=== PATIENT | female | born 1950 | race Caucasian/White ===

== ENCOUNTER 2016-10-13 12:06 | Emergency (ER) | payer OTHER ==
[2016-10-13] MEDS ORDERED: ONDANSETRON 4 MG/2 ML VIAL IVP STA (12:39)
[2016-10-13] MEDS ORDERED: KETOROLAC 60 MG/2 ML VIAL IVP STA (12:39)
[2016-10-13] MEDS ORDERED: SODIUM CHLORIDE 0.9% 1,000 ML IV ONE (12:39)
[2016-10-13] MEDS ORDERED: KETOROLAC 30 MG/ML VIAL ONE (12:47)
[2016-10-13] MEDS ORDERED: ONDANSETRON 4 MG/2 ML VIAL ONE (12:47)
[2016-10-13] MEDS ORDERED: ACETAMINOPHEN 325 MG TABLET PO STA (13:50)
[2016-10-13] MEDS ORDERED: ACETAMINOPHEN 325 MG TABLET PO ONE (13:50)
== END 2016-10-13 14:21 | disposition home or self-care (01) ==
DX: B34.9 Viral infection, unspecified (principal); R50.81 Fever presenting with conditions classified elsewhere; R03.0 Elevated blood-pressure reading, without diagnosis of hypertension; R35.0 Frequency of micturition; E03.9 Hypothyroidism, unspecified

== ENCOUNTER 2016-10-13 23:49 | Emergency (ER) | payer OTHER ==
[2016-10-14] MEDS ORDERED: cefTRIAXone 1 GM VIAL IM STA (01:45)
[2016-10-14] MEDS ORDERED: LIDOCAINE-MPF 1% 5 ML VIAL ONE (01:47)
[2016-10-14] MEDS ORDERED: cefTRIAXone 1 GM VIAL ONE (01:47)
== END 2016-10-14 01:53 | disposition home or self-care (01) ==
DX: L03.115 Cellulitis of right lower limb (principal); B34.9 Viral infection, unspecified; R50.81 Fever presenting with conditions classified elsewhere; R03.0 Elevated blood-pressure reading, without diagnosis of hypertension; R35.0 Frequency of micturition; E03.9 Hypothyroidism, unspecified
CPT/HCPCS: 36415; 51701; 80053; 81001; 83605; 83690; 85025; 87040; 87275; 87276; 96361; 96372; 96374; 96375; 99283; 99284; A9270

== ENCOUNTER 2019-02-16 12:25 | Emergency (ER) | payer MEDICARE, OTHER ==
--- NOTE | 2019-02-16 13:30 | XRAY Report ---
Reason: pain Procedure Date: 02/16/2019 Accession Number: [id number] / [id number] Procedure: XR - Knee 4 View RT CPT Code: FULL RESULT: EXAM: RIGHT KNEE RADIOGRAPHY EXAM DATE: 02/16/2019 12:53 PM. CLINICAL HISTORY: Pain. COMPARISON: None. TECHNIQUE: 4 views. FINDINGS: Bones: No acute fracture is identified. Joints: There is a small to moderate joint effusion. Osteophyte formation is greatest in the lateral compartment. Mild medial compartment joint space narrowing and osteophyte formation. Small osteophytes present in the patellofemoral compartment. No subluxation. Soft Tissues: No focal soft tissue swelling. IMPRESSION: Mild to moderate degenerative changes. Joint effusion. No acute fracture. RADIA
--- NOTE | 2019-02-16 13:54 | ED Physician Documentation ---
PD HPI LOWER EXT INJURY - Stated complaint Stated Complaint: RT KNEE INJURY - Chief complaint Chief Complaint: Trauma Ext - History obtained from History obtained from: Patient - History of Present Illness PD HPI LOW EXT INJURY LOCATION: Right (She is a history of a meniscus problem treated with arthroscopy on the right knee. That was remotely. More recently she has had pain in the lateral side of the Right knee and a lot of pressure in the knee with anterior swelling. The pain radiates up to the right hip laterally.) Review of Systems Constitutional: reports: Reviewed and negative Cardiac: reports: Reviewed and negative Respiratory: reports: Reviewed and negative PD PAST MEDICAL HISTORY - Past Medical History Cardiovascular: None Respiratory: Pneumonia Endocrine/Autoimmune: None GI: GERD : Incontinence, Kidney stones HEENT: None Psych: Depression Musculoskeletal: None Derm: None - Past Surgical History Past Surgical History: Yes Ortho: Arthroscopic surgery - Present Medications Home Medications: Ambulatory Orders Medication Instructions Recorded Confirmed Levothyroxine [Synthroid] 100 mcg PO DAILY 02/18/14 10/13/16 Escitalopram Oxalate [Lexapro] 20 mg PO DAILY 05/16/15 10/13/16 Omeprazole 1 tab PO DAILY 10/13/16 10/13/16 Amox/Clav 875/125 [Augmentin] 1 each PO Q12H #14 tablet 10/14/16 Hydrocodone/Acetaminophen 1 - 2 each PO Q6H PRN #14 tablet 02/16/19 [Hydrocodon-Acetaminophen 5-325] - Allergies Allergies/Adverse Reactions: Allergies Allergy/AdvReac Type Severity Reaction Status Date / Time No Known Drug Allergies Allergy Verified 02/16/19 12:32 - Social History Does the pt smoke?: No Smoking Status: Never smoker Does the pt drink ETOH?: Yes Does the pt have substance abuse?: No - POLST Patient has POLST: No PD ED PE NORMAL - Vitals Vital signs reviewed: Yes - General General: Alert and oriented X 3, No acute distress - Extremities Extremities: Other (The right knee is mildly tender anteriorly and over the lateral joint line. She is also tender and tight over the IT band. She does have positive grind testing but ligamentous testing is all tight and intact.) - Neuro Neuro: Alert and oriented X 3, Normal speech Results - Vitals Vitals: Vital Signs - 24 hr 02/16/19 12:31 Temperature 36.9 C Heart Rate 88 Respiratory 18 Rate Blood Pressure 148/83 H O2 Saturation 97 Oxygen O2 Source Room air - Rads (name of study) R knee 4v Radiology: EMP read contemporaneously (Mild to moderate degenerative changes and joint effusion without acute fracture) Departure - Departure Disposition: 01 Home, Self Care Clinical Impression: Internal derangement of right knee, Iliotibial band syndrome of right side Condition: Good Record reviewed to determine appropriate education?: Yes Instructions: ED Meniscal Injury Knee Poss, Iliotibial Band Stretch Prescriptions: Hydrocodone/Acetaminophen [Hydrocodon-Acetaminophen 5-325] 1 - 2 each PO Q6H PRN #14 tablet PRN Reason: pain Comments: As discussed it seems like your knee problem is a combination of a few things, some degenerative/arthritic changes, iliotibial band syndrome, and potentially something like a meniscus issue. Do the stretches as shown. You can wear the articulating knee splint as needed. Take the x-ray and follow-up with your primary care physician for a referral to your orthopedic provider. Return for new or worsening symptoms.
[2019-02-16 14:05] VITALS: BP 152/71
== END 2019-02-16 14:06 | disposition home or self-care (01) ==
LOC: ED 12:25
DX: M23.91 Unspecified internal derangement of right knee (principal); M76.31 Iliotibial band syndrome, right leg
CPT/HCPCS: 99283

== ENCOUNTER 2019-12-13 07:50 | Outpatient (CLI) | payer MEDICARE ==
[2019-12-13 10:39] LABS: ALBUMIN 3.9 g/dL (3.2-5.5); ALBUMIN/GLOBULIN RATIO 1.1 (1.0-2.2); BILIRUBIN,TOTAL 0.8 mg/dL (0.2-1.0); CALCIUM 9.3 mg/dL (8.5-10.3); CREATININE 0.7 mg/dL (0.4-1.0); TOTAL PROTEIN 7.3 g/dL (6.7-8.2)
[2019-12-13 11:47] LABS: HB2 TOTAL 15.2 g/dL; HEMOGLOBIN A1C 0.59 g/dL; HEMOGLOBIN A1C % 5.7 % (4.6-6.2)
== END 2019-12-13 07:51 | disposition home or self-care (01) ==
LOC: LAB.S 07:50
PROVIDERS: ATTEND Nurse Practitioner Family
DX: R73.01 Impaired fasting glucose (principal)
CPT/HCPCS: 36415; 80053; 83036

== ENCOUNTER 2020-03-10 09:17 | Outpatient (CLI) | payer MEDICARE ==
--- NOTE | 2020-03-13 12:26 | Mammography Report ---
BILATERAL DIGITAL SCREENING MAMMOGRAM 3D/2D: 03/10/2020 CLINICAL: Routine screening. Comparison is made to exams dated: 12/29/2013 mammogram and 07/09/2012 mammogram - [facility]. The tissue of both breasts is predominantly fatty. No significant masses, calcifications, or other findings are seen in either breast. There has been no significant interval change. IMPRESSION: NEGATIVE There is no mammographic evidence of malignancy. A 1 year screening mammogram is recommended. This exam was interpreted at Station ID: [id number]. NOTE: For mammograms, a report in lay terms will be sent to the patient. Approximately 15% of breast malignancies will not be visualized mammographically. In the management of a palpable breast mass, a negative mammogram must not discourage biopsy of a clinically suspicious lesion. Electronically Signed By: Vivi gaspar/[email or web address]:03/10/2020 18:11:40 ACR BI-RADS Category 1: Negative 3341F PARENCHYMAL PATTERN: (F) - The breast(s) demonstrate(s) diffuse fatty replacement. BI-RADS CATEGORY: (1) - 1 RECOMMENDATION: (ANNUAL) - Recommend routine annual screening mammography. [id number] 1 year screening LATERALITY: (B)
== END 2020-03-10 09:18 | disposition home or self-care (01) ==
LOC: DI 09:17
PROVIDERS: ATTEND Physician Assistant Medical
DX: Z12.31 Encounter for screening mammogram for malignant neoplasm of breast (principal)
CPT/HCPCS: 77063; 77067

== ENCOUNTER 2021-02-08 07:25 | Outpatient (CLI) | payer MEDICARE ==
[2021-02-08 14:34] LABS: BASOPHILS # (AUTO) 0.1 10^3/uL (0.0-0.1); BASOPHILS % (AUTO) 1.1 %; EOSINOPHILS # (AUTO) 0.1 10^3/uL (0.0-0.7); EOSINOPHILS % (AUTO) 2.3 %; HCT - HEMATOCRIT 43.5 % (37.0-47.0); LYMPHOCYTES # (AUTO) 1.5 10^3/uL (1.5-3.5); LYMPHOCYTES % (AUTO) 32.8 %; MEAN CORPUSCULAR HEMOGLOBIN 32.9 pg (27.0-31.0); MEAN CORPUSCULAR HGB CONC 32.2 g/dL (32.0-36.0); MEAN CORPUSCULAR VOLUME 102.4 fL (81.0-99.0); MEAN PLATELET VOLUME 12.8 fL (7.9-10.8); MONOCYTES # (AUTO) 0.5 10^3/uL (0.0-1.0); MONOCYTES % (AUTO) 9.6 %; NEUTROPHILS # (AUTO) 2.5 10^3/uL (1.5-6.6); PLT - PLATELET COUNT 203 10^3/uL (130-450); RED BLOOD COUNT 4.25 10^6/uL (4.20-5.40); RED CELL DISTRIBUTION WIDTH 12.8 % (12.0-15.0); WHITE BLOOD COUNT 4.7 x10^3/uL (4.8-10.8)
[2021-02-08 15:46] LABS: CHOL/HDL RATIO 3.4 (<4.4); CHOLESTEROL 189 mg/dL; HDL CHOLESTEROL 56 mg/dL; LDL CHOLESTEROL,CALCULATED 100 mg/dL; LDL/HDL RATIO 1.8 (<4.4); TRIGLYCERIDES 165 mg/dL; VLDL CHOLESTEROL 33 mg/dL
[2021-02-08 15:48] LABS: THYROID STIMULATING HORMONE 1.31 uIU/mL (0.34-5.60)
[2021-02-08 16:09] LABS: ESTIMATED AVERAGE GLUCOSE 105 mg/dL (70-100); HEMOGLOBIN A1c% 5.3 % (4.27-6.07)
== END 2021-02-08 07:26 | disposition home or self-care (01) ==
LOC: LAB.S 07:25
PROVIDERS: ATTEND Internal Medicine
DX: K21.9 Gastro-esophageal reflux disease without esophagitis (principal); Z13.6 Encounter for screening for cardiovascular disorders; E03.9 Hypothyroidism, unspecified; R73.01 Impaired fasting glucose
CPT/HCPCS: 36415; 80061; 83036; 83721; 84443; 85025

== ENCOUNTER 2021-03-12 15:23 | Outpatient (CLI) | payer MEDICARE ==
[2021-03-12 19:52] LABS: BASOPHILS % (AUTO) 0.7 %; EOSINOPHILS # (AUTO) 0.1 10^3/uL (0.0-0.7); EOSINOPHILS % (AUTO) 1.5 %; HCT - HEMATOCRIT 43.3 % (37.0-47.0); HGB - HEMOGLOBIN 13.8 g/dL (12.0-16.0); LYMPHOCYTES # (AUTO) 1.6 10^3/uL (1.5-3.5); LYMPHOCYTES % (AUTO) 26.6 %; MEAN CORPUSCULAR HEMOGLOBIN 32.9 pg (27.0-31.0); MEAN CORPUSCULAR HGB CONC 31.9 g/dL (32.0-36.0); MEAN CORPUSCULAR VOLUME 103.3 fL (81.0-99.0); MEAN PLATELET VOLUME 12.6 fL (7.9-10.8); MONOCYTES # (AUTO) 0.6 10^3/uL (0.0-1.0); MONOCYTES % (AUTO) 10.3 %; NEUTROPHILS # (AUTO) 3.6 10^3/uL (1.5-6.6); NEUTROPHILS % (AUTO) 60.7 %; PLT - PLATELET COUNT 199 10^3/uL (130-450); RED BLOOD COUNT 4.19 10^6/uL (4.20-5.40); RED CELL DISTRIBUTION WIDTH 13.3 % (12.0-15.0); WHITE BLOOD COUNT 5.9 x10^3/uL (4.8-10.8)
[2021-03-12 20:02] LABS: CALCIUM 9.3 mg/dL (8.5-10.3); CREATININE 0.7 mg/dL (0.4-1.0); POTASSIUM 3.9 mmol/L (3.5-5.0)
[2021-03-12 20:48] LABS: BILIRUBIN,URINE NEGATIVE (NEGATIVE); GLUCOSE, URINE (UA) NEGATIVE (NEGATIVE); KETONES,URINE (UA) NEGATIVE (NEGATIVE); LEUKOCYTE ESTERASE, URINE NEGATIVE (NEGATIVE); NITRITE,URINE NEGATIVE (NEGATIVE); OCCULT BLOOD,URINE NEGATIVE (NEGATIVE); PH,URINE 5.5 PH (5.0-7.5); PROTEIN,URINE NEGATIVE (NEGATIVE); UROBILINOGEN,URINE 0.2 (NORMAL) E.U./dL (NORMAL)
[2021-03-12 20:49] LABS: CLARITY,URINE CLEAR (CLEAR)
[2021-03-12 20:57] LABS: BACTERIA,URINE None Seen /HPF (None Seen); CRYSTALS,URINE 26-50 Ca Oxalate /LPF; RBC,URINE None Seen /HPF (0-5); SQUAMOUS EPITHELIAL CELL,UR RARE Squamous (<= Few); WBC,URINE 0-3 /HPF (0-5)
== END 2021-03-12 15:24 | disposition home or self-care (01) ==
LOC: LAB.S 15:23
PROVIDERS: ATTEND Internal Medicine
DX: N12 Tubulo-interstitial nephritis, not specified as acute or chronic (principal)
CPT/HCPCS: 36415; 80048; 81001; 85025; 87086

== ENCOUNTER 2021-04-24 08:00 | Outpatient (CLI) | payer MEDICARE | END 2021-04-24 23:59 | disposition home or self-care (01) | LOC: LAB.S 08:00 | PROVIDERS: ATTEND Physician Assistant Medical | DX: R39.15 Urgency of urination (principal); R35.0 Frequency of micturition | CPT/HCPCS: 87086 ==

== ENCOUNTER 2021-05-29 12:56 | Outpatient (CLI) | payer MEDICARE ==
--- NOTE | 2021-05-30 12:55 | Mammography Report ---
BILATERAL DIGITAL SCREENING MAMMOGRAM 3D/2D: 05/29/2021 CLINICAL: Routine screening. Routine screening. Comparison is made to exams dated: 03/10/2020 mammogram and 12/29/2013 mammogram - [facility]. The tissue of both breasts is predominantly fatty. No significant masses, calcifications, or other findings are seen in either breast. There has been no significant interval change. IMPRESSION: NEGATIVE There is no mammographic evidence of malignancy. A 1 year screening mammogram is recommended. This exam was interpreted at Station ID: [id number]. NOTE: For mammograms, a report in lay terms will be sent to the patient. Approximately 15% of breast malignancies will not be visualized mammographically. In the management of a palpable breast mass, a negative mammogram must not discourage biopsy of a clinically suspicious lesion. Electronically Signed By: Les Escobar M.D. ar/penrad:05/29/2021 14:01:19 ACR BI-RADS Category 1: Negative 3341F PARENCHYMAL PATTERN: (F) - The breast(s) demonstrate(s) diffuse fatty replacement. BI-RADS CATEGORY: (1) - 1 RECOMMENDATION: (ANNUAL) - Recommend routine annual screening mammography. [id number] 1 year screening LATERALITY: (B)
== END 2021-05-29 12:57 | disposition home or self-care (01) ==
LOC: DI.S 12:56
PROVIDERS: ATTEND Internal Medicine
DX: Z12.31 Encounter for screening mammogram for malignant neoplasm of breast (principal)

== ENCOUNTER 2021-10-03 15:29 | Outpatient (CLI) | payer MEDICARE ==
[2021-10-03 20:23] LABS: BILIRUBIN,URINE NEGATIVE (NEGATIVE); GLUCOSE, URINE (UA) NEGATIVE (NEGATIVE); KETONES,URINE (UA) NEGATIVE (NEGATIVE); LEUKOCYTE ESTERASE, URINE TRACE (NEGATIVE); NITRITE,URINE POSITIVE (NEGATIVE); OCCULT BLOOD,URINE NEGATIVE (NEGATIVE); PROTEIN,URINE NEGATIVE (NEGATIVE); UROBILINOGEN,URINE 0.2 (NORMAL) E.U./dL (NORMAL)
[2021-10-03 20:53] LABS: BACTERIA,URINE Many /HPF (None Seen); CLARITY,URINE SL. CLOUDY (CLEAR); CRYSTALS,URINE 6-10 Calcium Oxalate /LPF; RBC,URINE 0-5 /HPF (0-5); SQUAMOUS EPITHELIAL CELL,UR RARE Squamous (<= Few)
== END 2021-10-03 15:30 | disposition home or self-care (01) ==
LOC: LAB.S 15:29
PROVIDERS: ATTEND Internal Medicine
DX: R30.0 Dysuria (principal)
CPT/HCPCS: 81001; 87086; 87181

== ENCOUNTER 2021-10-23 09:56 | Outpatient (CLI) | payer MEDICARE ==
[2021-10-23 15:29] LABS: ESTIMATED AVERAGE GLUCOSE 123 mg/dL (70-100); HEMOGLOBIN A1c% 5.9 % (4.27-6.07)
[2021-10-23 15:40] LABS: CALCIUM 9.5 mg/dL (8.5-10.3); CREATININE 0.8 mg/dL (0.4-1.0); POTASSIUM 3.5 mmol/L (3.5-5.0)
[2021-10-23 16:26] LABS: THYROID STIMULATING HORMONE 1.72 uIU/mL (0.34-5.60)
== END 2021-10-23 09:57 | disposition home or self-care (01) ==
LOC: LAB.S 09:56
PROVIDERS: ATTEND Internal Medicine
DX: I10 Essential (primary) hypertension (principal); E03.9 Hypothyroidism, unspecified; R73.01 Impaired fasting glucose
CPT/HCPCS: 36415; 80048; 83036; 84443

== ENCOUNTER 2021-12-14 12:27 | Emergency (ER) | payer MEDICARE ==
--- NOTE | 2021-12-14 13:10 | ED Physician Documentation ---
PD HPI MAJOR TRAUMA - Stated complaint Stated Complaint: R HIP PX - Chief complaint Chief Complaint: Trauma Ch/Bk - History obtained from History obtained from: Patient - Additional information Additional information: She was working out in the heart the yard, her was using a riding lawnmower and it kind of blocked and then hit her. She fell face forward and hit her head on the ground. She denies headache or loss of consciousness. She not anticoagulated. Her only pain complaint is severe low back pain radiating into the right hip. This happened prior to arrival. Review of Systems Constitutional: reports: Reviewed and negative Eyes: reports: Reviewed and negative Ears: reports: Reviewed and negative Cardiac: reports: Reviewed and negative Respiratory: reports: Reviewed and negative PD PAST MEDICAL HISTORY - Past Medical History Cardiovascular: None Respiratory: Pneumonia Endocrine/Autoimmune: None GI: GERD : Incontinence, Kidney stones HEENT: None Psych: Depression Musculoskeletal: None Derm: None - Past Surgical History Past Surgical History: Yes Ortho: Arthroscopic surgery - Present Medications Home Medications: Ambulatory Orders Medication Instructions Recorded Confirmed Levothyroxine [Synthroid] 100 mcg PO DAILY 02/18/14 10/13/16 Escitalopram Oxalate [Lexapro] 20 mg PO DAILY 05/16/15 10/13/16 Omeprazole 1 tab PO DAILY 10/13/16 10/13/16 Amox/Clav 875/125 [Augmentin] 1 each PO Q12H #14 tablet 10/14/16 Hydrocodone/Acetaminophen 1 - 2 each PO Q6H PRN #14 tablet 02/16/19 [Hydrocodon-Acetaminophen 5-325] Oxycodone HCl/Acetaminophen 1 - 2 each PO Q6H PRN #30 tablet 12/14/21 [Percocet 5-325 mg Tablet] - Allergies Allergies/Adverse Reactions: Allergies Allergy/AdvReac Type Severity Reaction Status Date / Time No Known Drug Allergies Allergy Verified 12/14/21 12:45 - Social History Does the pt smoke?: No Smoking Status: Never smoker Does the pt drink ETOH?: Yes Does the pt have substance abuse?: No - POLST Patient has POLST: No PD ED PE NORMAL - Vitals Vital signs reviewed: Yes - General General: Alert and oriented X 3, Other (She appears uncomfortable and is laying kind of up on her left hip) - HEENT HEENT: PERRL, EOMI - Neck Neck: Supple, no meningeal sign, No bony TTP - Cardiac Cardiac: RRR, No murmur - Respiratory Respiratory: No respiratory distress, Clear bilaterally - Abdomen Abdomen: Normal bowel sounds, Soft, Non tender - Back Back: No CVA TTP, No spinal TTP - Derm Derm: Normal color - Extremities Extremities: Other (Severe tenderness of the lower lumbar spine and posterior right pelvic brim. The hip itself is nontender and she has painless range of motion of the hip with internal and external rotation.) - Neuro Neuro: Alert and oriented X 3, Normal speech Eye Opening: Spontaneous Motor: Obeys Commands Verbal: Oriented GCS Score: 15 Results - Vitals Vitals: Vital Signs - 24 hr 12/14/21 12/14/21 12:41 12:45 Temperature 36.0 C L 36.5 C Heart Rate 60 60 Respiratory 18 18 Rate Blood Pressure 138/68 H 138/68 H O2 Saturation 96 96 Oxygen O2 Source Room air - Rads (name of study) Lumbar spine CT showing acute L2 fracture without significant compression or retropulsion Radiology: EMP read contemporaneously PD MEDICAL DECISION MAKING - ED course ED course: 71-year-old woman presents after a ground-level fall. Found to have an L2 compression fracture. Other relevant CTs were negative. After administration 1 mg of Dilaudid IM (noting we could not get an IV on her and the first carpuject of Dilaudid that was drawn was broken in the Pyxis per the nurse) she was doing well and passed a road test with a walker. Departure - Departure Disposition: 01 Home, Self Care Clinical Impression: Compression fracture of L2 Qualifiers: Encounter type: initial encounter Qualified Code(s): S32.020A - Wedge compression fracture of second lumbar vertebra, initial encounter for closed fracture Condition: Good Record reviewed to determine appropriate education?: Yes Instructions: ED Fx Comp Vertebral Prescriptions: Oxycodone HCl/Acetaminophen [Percocet 5-325 mg Tablet] 1 - 2 each PO Q6H PRN #30 tablet PRN Reason: pain Comments: I sent your prescription electronically to [facility] in [place]. Follow-up with your doctor in about a week to see how its going. Return for new or worsening symptoms. I am prescribing a short course of narcotic pain medication for you. These are potentially dangerous and addictive medications that should be used carefully. These medications may constipate you. Take an yuib-cnq-xjdptke stool softener (docusate) twice daily with plenty of water while taking these medications. If you go 24 hours without a bowel movement, take xcnl-mer-ymyhngj miralax, per package instructions. Do not drink or drive while taking these medications. If you received narcotic or sedating medications while in the emergency department, do not drive for 24 hours. Store this medication in a safe, secure place and out of reach of children. It is a violation of federal law to give or sell this medication to another person or to use in a manner other than prescribed. The ED will not refill narcotic prescriptions, including prescriptions lost or stolen. To dispose of unwanted medications: 1. [facility] [address] in [place] has a medication drop box. They accept prescription medications (in pill form) Friday through Friday 9:00 a.m. to 5:00 p.m. 2. The [facility] [employer] accepts prescription medications (in pill form only) for disposal year round. Call for more information. 3. Contact the [facility] for the next [facility] sponsored prescription drug collection event. , [phone], or [phone]; Note that many narcotic pain relievers also contain Tylenol/acetaminophen. Please ensure that your total dose of acetaminophen from all sources does not exceed 3 g (3000 mg) per day.
--- OUTSIDE RECORDS SUMMARY | 2021-12-14 13:23 | EXTERNAL MEDICAL SUMMARY RPT | Continuity of Care Document ---
:1950 Author Organization [facility] Address [address] [place] [address] Phone Care Team Providers Name Role Phone Silas KWON Unavailable Unavailable Allergies No information. Encounters No information. Medications date description facility 20211015 oxybutynin chloride [facility] 20211015 lisinopril [facility] [id number] mirabegron [facility] Problems date description facility 20211015 Unspecified adverse effect of [facility] & unspecified drug, medicinal and Ancillar y Services [facility] biological substance 20211015 Undiagnosed cardiac murmurs Walk[facility]In [facility] Primary Care & Ancillary Services C [facility] 20211015 Total score? [facility] 20211015 Tobacco use and exposure [facility] 20211015 Tobacco smoking status NHIS [facility] & Ancillary Services [facility] 20211015 Systolic murmur [facility] 20211015 Never smoker [facility] 20211015 Details of drug misuse behavior [facility] 20211015 Contusion of other part of head, [facility] & initial encounter Ancillary Services [facility] 20211015 Contusion of forehead [facility] 20211015 Contusion of face, scalp, and neck [facility] & except eye(s) Ancillary Services [facility] 20211015 Cardiac murmur, unspecified Walk[facility]In [facility] Primary Care & Ancillary Services [facility] 20211015 Alcohol use [facility] 20211015 Adverse reaction to drug [facility] 20211015 Adverse effect of unspecified drugs, [facility] Primary Care & medicaments and biological substances, [facility] initial encounter Results No information. Vital Signs date measurement value source 20211015 weight_standard 250 lb 20211015 weight_metric 113.4 kg 20211015 temperature_standard 97.5 F 20211015 temperature_metric 36.39 C 20211015 respiration_rate 17 /min 20211015 height_standard 67 in 20211015 height_metric 170.18 cm 20211015 heart_rate 63 /min 20211015 BP_systolic 125 mm[Hg] 20211015 BP_diastolic 49 mm[Hg] 20211015 BMI 39.30 kg/m2
[2021-12-14] MEDS: HYDROmorphone 1 MG/ML CARPUJECT IM STA ×2 (13:38→13:40)
[2021-12-14] MEDS: ONDANSETRON ODT 4 MG TABLET TL STA (13:42)
[2021-12-14] MEDS: HYDROmorphone 1 MG/ML CARPUJECT IVP STA (13:44)
[2021-12-14] MEDS: ONDANSETRON 4 MG/2 ML VIAL IVP STA (13:44)
--- NOTE | 2021-12-14 14:27 | CT Report ---
PROCEDURE: LUMBAR SPINE WO INDICATIONS: Back injury TECHNIQUE: Noncontrast 3 mm thick sections acquired from the T12 level to the sacrum. Sagittal and coronal refo rmats were constructed. For radiation dose reduction, the following was used: automated exposure co ntrol, adjustment of mA and/or kV according to patient size. COMPARISON: None. FINDINGS: Image quality: Excellent. Bones: There is normal bony alignment. Acute/subacute appearing fractures noted in the anterior thi rd of the L2 vertebral body with approximately 10% compression deformity. No retropulsion. No suspici ous lytic or blastic bony lesions. Central spinal caliber is of normal overall caliber. No pars def ects. Multilevel disc bulges are present. Spinal stenosis is most prominent at L3-4, L4-5. Multilevel patricia inal narrowing is present most severe at L2-3, L3-4, L4-5 and L5-S1. Multilevel facet arthropathy is present. Soft tissues: No retroperitoneal masses or hematomas. Visualized aorta is normal in caliber. IMPRESSION: 1. Acute/subacute appearing fracture at the anterior third the L2 vertebral body without significant compression deformity. No retropulsion. 2. Multilevel degenerative changes are present. Reviewed by: Loreto Dyer MD on 12/14/2021 2:26 PM PDT Approved by: Loreto Dyer MD on 12/14/2021 2:26 PM PDT Station ID: [id number]
--- NOTE | 2021-12-14 14:36 | CT Report ---
PROCEDURE: PELVIS WO INDICATIONS: Back injury TECHNIQUE: Noncontrast 3 mm axial sections acquired through the bony pelvis, with coronal and sagittal reformatt ing. For radiation dose reduction, the following was used: automated exposure control, adjustment of mA and/or kV according to patient size. COMPARISON: None. FINDINGS: Image quality: Excellent. Bones: There is no visualized fractures or dislocations. Degenerative changes are present within the lower lumbar spine. No suspicious osseous lesions. Soft tissues: Visualized portions of the abdomen and pelvis demonstrate nodular to gas pattern. Blad ron is distended. No hernias. IMPRESSION: No visualized fracture. Reviewed by: Loreto Dyer MD on 12/14/2021 2:35 PM PDT Approved by: Loreto Dyer MD on 12/14/2021 2:35 PM PDT Station ID: [id number]
[2021-12-14 15:14] VITALS: BP 125/54
== END 2021-12-14 15:15 | disposition home or self-care (01) ==
LOC: ED 12:27
DX: S32.020A Wedge compression fracture of second lumbar vertebra, initial encounter for closed fracture (principal); W28.XXXA Contact with powered lawn mower, initial encounter
CPT/HCPCS: 72131; 72192; 96372; 99283; J1170; Q0162

== ENCOUNTER 2022-01-22 12:58 | Outpatient (CLI) | payer MEDICARE ==
--- NOTE | 2022-01-22 14:02 | XRAY Report ---
PROCEDURE: Lumbar Spine 2 View INDICATIONS: LOW BACK PX TECHNIQUE: 3 views of the lumbar spine were acquired. COMPARISON: CT lumbar spine, 12/14/1021. FINDINGS: Bones: 5 xsa-not-wvyobcr vertebrae are present. There is rate 1 anterolisthesis of L4 on L5. Modera qx-eb-zrlhll vertebral body compression fracture is present at L2, significantly increased in severit y since the last exam. No suspicious bony lesions. Mild degenerative disease throughout lumbar spin e. Moderate facet arthropathy at L4-L5 and L5-S1. 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 Soft tissues: Overlying bowel gas pattern is normal. Mild scattered calcifications indicating athero sclerosis. IMPRESSION: 1. Eadzznop-hv-nnpahg compression fracture of L2, significantly worsened since 12/14/2021. Reviewed by: Elmer Cage MD on 01/22/2022 2:01 PM PDT Approved by: Elmer Cage MD on 01/22/2022 2:01 PM PDT Station ID: [id number]
== END 2022-01-22 12:59 | disposition home or self-care (01) ==
LOC: DI.N 12:58
PROVIDERS: ATTEND Student in an Organized Health Care Education/Training Program
DX: M48.56XA Collapsed vertebra, not elsewhere classified, lumbar region, initial encounter for fracture (principal)

== ENCOUNTER 2022-04-12 08:00 | Outpatient (CLI) | payer MEDICARE ==
[2022-04-12 20:02] LABS: BILIRUBIN,URINE NEGATIVE (NEGATIVE); GLUCOSE, URINE (UA) NEGATIVE (NEGATIVE); KETONES,URINE (UA) NEGATIVE (NEGATIVE); LEUKOCYTE ESTERASE, URINE SMALL (NEGATIVE); NITRITE,URINE NEGATIVE (NEGATIVE); OCCULT BLOOD,URINE NEGATIVE (NEGATIVE); PROTEIN,URINE NEGATIVE (NEGATIVE); UROBILINOGEN,URINE 0.2 (NORMAL) E.U./dL (NORMAL)
[2022-04-12 20:05] LABS: CLARITY,URINE HAZY (CLEAR)
[2022-04-12 20:13] LABS: BACTERIA,URINE Many /HPF (None Seen); RBC,URINE 0-5 /HPF (0-5); SQUAMOUS EPITHELIAL CELL,UR RARE Squamous (<= Few); WBC,URINE >25 /HPF (0-5)
== END 2022-04-12 23:59 | disposition home or self-care (01) ==
LOC: LAB 08:00
PROVIDERS: ATTEND Physician Assistant Medical
DX: R30.0 Dysuria (principal)
CPT/HCPCS: 81001

== ENCOUNTER 2022-04-17 08:00 | Outpatient (CLI) | payer MEDICARE | END 2022-04-17 23:59 | disposition home or self-care (01) | LOC: LAB.S 08:00 | PROVIDERS: ATTEND Registered Nurse | DX: R30.0 Dysuria (principal) | CPT/HCPCS: 87086 ==

== ENCOUNTER 2022-06-29 11:50 | Emergency (ER) | payer MEDICARE ==
[2022-06-29 12:09] VITALS: BP 150/68
--- NOTE | 2022-06-29 12:19 | ED Physician Documentation ---
History of Present Illness - Stated complaint Stated Complaint: RT KNEE PX/FLUID - Chief complaint Chief Complaint: Ext Problem - History obtained from History obtained from: Patient - Additonal information Additional information: Patient is a 72-year-old female presenting for evaluation of bilateral lower extremity edema which is been a chronic problem for the patient. However recently she has had a wound to the right heel. It started off as a blister from poor fitting shoes.It was lanced on June 26 And she was started on cephalexin. She reports that initially looked like it was getting better but over the last few days that it has increased in size which she attributes to the swelling in her legs. She continues to have yellow drainage from the wound but denies purulent drainage.She reports that the swelling in both legs is making her knees hurt. She reports having ongoing issues with swelling in her legs from childhood. She did mention that she had talked to her primary care doctor about this in the past and the plan was to start her on hydrochlorothiazide as a diuretic however that has not been initiated and she has not been able to get back in with her primary care doctor since the wound started.She denies fever, chest pain, difficulty breathing, abdominal pain, unilateral leg pain,History of PE or DVT. She denies recent trauma or injury. Review of Systems Constitutional: denies: Fever Nose: denies: Congestion Throat: denies: Sore throat Cardiac: denies: Chest pain / pressure Respiratory: denies: Dyspnea GI: denies: Abdominal Pain : denies: Dysuria Musculoskeletal: reports: Joint pain, Extremity swelling PD PAST MEDICAL HISTORY - Past Medical History Cardiovascular: None Respiratory: Pneumonia Endocrine/Autoimmune: None GI: GERD : Incontinence, Kidney stones HEENT: None Psych: Depression Musculoskeletal: None Derm: None - Past Surgical History Past Surgical History: Yes Ortho: Arthroscopic surgery - Present Medications Home Medications: Ambulatory Orders Medication Instructions Recorded Confirmed Levothyroxine [Synthroid] 100 mcg PO DAILY 02/18/14 10/13/16 Escitalopram Oxalate [Lexapro] 20 mg PO DAILY 05/16/15 10/13/16 Omeprazole 1 tab PO DAILY 10/13/16 10/13/16 Amox/Clav 875/125 [Augmentin] 1 each PO Q12H #14 tablet 10/14/16 Hydrocodone/Acetaminophen 1 - 2 each PO Q6H PRN #14 tablet 02/16/19 [Hydrocodon-Acetaminophen 5-325] Oxycodone HCl/Acetaminophen 1 - 2 each PO Q6H PRN #30 tablet 12/14/21 [Percocet 5-325 mg Tablet] Furosemide [Lasix] 40 mg PO DAILY #3 tablet 06/29/22 Sulfamethox/Trimeth 800/160 1 each PO BID #14 tablet 06/29/22 [Bactrim Ds 800/160] - Allergies Allergies/Adverse Reactions: Allergies Allergy/AdvReac Type Severity Reaction Status Date / Time No Known Drug Allergies Allergy Verified 06/29/22 12:09 - Social History Does the pt smoke?: No Smoking Status: Never smoker Does the pt drink ETOH?: Yes Does the pt have substance abuse?: No - POLST Patient has POLST: No PD ED PE NORMAL - General General: Alert and oriented X 3, No acute distress, Well developed/nourished - HEENT HEENT: Atraumatic, Moist mucous membranes - Neck Neck: Supple, no meningeal sign - Cardiac Cardiac: RRR, Strong equal pulses - Respiratory Respiratory: No respiratory distress, Clear bilaterally - Derm Derm: Warm and dry - Extremities Extremities: No deformity, No tenderness to palpate, No calf tenderness / cord, Other (Quarter size open wound to right heel with serosanguineous drainage, no fluctuance, no surrounding erythema, no streaking or signs of lymphangitic spread). No: No edema (Symmetric bilateral lower extremity swelling, no calf tenderness) - Neuro Neuro: Normal speech Results - Vitals Vitals: Vital Signs - 24 hr 06/29/22 12:02 Temperature 36.4 C L Heart Rate 71 Respiratory 16 Rate Blood Pressure 150/68 H O2 Saturation 98 Oxygen O2 Source Room air - Labs Labs: Laboratory Tests 06/29/22 12:18 Sodium 138 Potassium 4.6 Chloride 101 Carbon Dioxide 31 Anion Gap 6.0 BUN 18 Creatinine 0.7 Estimated GFR (MDRD) 82 L Glucose 115 H Calcium 9.3 PD MEDICAL DECISION MAKING - ED course Complexity details: reviewed results, re-evaluated patient, d/w patient ED course: Patient with Right heel wound status post recent drainage with continued pain and erythema. No lymphangitic spread. No fluctuance to suggest continued abscess. Patient has bilateral lower extremity edema which is an acute on chronic problem for the patient. In no respiratory symptoms.Renal function and electrolytes within normal limits. Discussed plan to obtain wound culture and broaden antibiotic coverage. Patient also given a short course of Lasix to help with her lower extremity edema and will follow up with primary care doctor. No unilateral swelling or calf tenderness to suggest DVT. Pt advised on concerning symptoms to return for. Departure - Departure Disposition: 01 Home, Self Care Clinical Impression: Localized swelling of both lower legs Blister of right heel with infection Qualifiers: Encounter type: subsequent encounter Qualified Code(s): S90.821D - Blister (nonthermal), right foot, subsequent encounter Condition: Stable Instructions: ED Infec Skin Cellulitis, ED Edema Legs Bilateral Follow-Up: Duong Castañeda MD [Primary Care Provider] - Prescriptions: Sulfamethox/Trimeth 800/160 [Bactrim Ds 800/160] 1 each PO BID #14 tablet Furosemide [Lasix] 40 mg PO DAILY #3 tablet Comments: We have obtained a wound culture from your right heel and I have started you on an additional antibiotic called Bactrim which will cover for organisms not covered by cephalexin. I will also give you a short course of a diuretic called Lasix which may help with the edema in both legs. I have sent these prescriptions to [facility]. Please call your primary care doctor on Friday for close follow-up. If you notice any worsening symptoms please return to the emergency department. Discharge Date/Time: 06/29/22 12:48
[2022-06-29 12:33] LABS: CALCIUM 9.3 mg/dL (8.5-10.3); CREATININE 0.7 mg/dL (0.4-1.0); POTASSIUM 4.6 mmol/L (3.5-5.0)
== END 2022-06-29 12:48 | disposition home or self-care (01) ==
LOC: ED 11:50
DX: R60.0 Localized edema (principal); S90.821A Blister (nonthermal), right foot, initial encounter; X58.XXXA Exposure to other specified factors, initial encounter
CPT/HCPCS: 36415; 80048; 87070; 87205; 99283; 99284

== ENCOUNTER 2022-10-23 15:55 | Outpatient (CLI) | payer MEDICARE ==
--- NOTE | 2022-10-23 17:59 | XRAY Report ---
PROCEDURE: Chest 2 View X-Ray INDICATIONS: EXERTIONAL DYSPNEA TECHNIQUE: 2 views of the chest were acquired. COMPARISON: None. FINDINGS: Surgical changes and devices: None. Lungs and pleura: No pleural effusions or pneumothorax. Lungs are clear. Mediastinum: Mediastinal contours are normal. Heart size is normal. Bones and chest wall: No suspicious bony abnormalities. Soft tissues appear unremarkable. IMPRESSION: No acute cardiopulmonary findings. Reviewed by: Madalyn Aquino MD on 10/23/2022 5:58 PM [facility] Approved by: Madalyn Aquino MD on 10/23/2022 5:58 PM [facility] Station ID: [id number]
--- NOTE | 2022-10-23 18:00 | XRAY Report ---
PROCEDURE: Lumbar Spine 2 View INDICATIONS: LOWER BACK PAIN TECHNIQUE: 2 views of the lumbar spine were acquired. COMPARISON: 2 views of the lumbar spine dated 01/22/2022 FINDINGS: Bones: 5 [id number] vertebrae are present. Severe compression deformity is redemonstrated at L2 , unchanged from the prior study. No new compression deformities. Anterolisthesis at L4-5 is redemons trated, unchanged. Fused intervertebral disc space narrowing and endplate sclerosis is redemonstrated . Soft tissues: Overlying bowel gas pattern is normal. No suspicious soft tissue calcifications. IMPRESSION: Stable degenerative change and severe L2 compression deformity. Reviewed by: Madalyn Aquino MD on 10/23/2022 5:59 PM PST Approved by: Madalyn Aquino MD on 10/23/2022 5:59 PM PST Station ID: [id number]
== END 2022-10-23 15:56 | disposition home or self-care (01) ==
LOC: DI 15:55
PROVIDERS: ATTEND Student in an Organized Health Care Education/Training Program
DX: R06.00 Dyspnea, unspecified (principal); M47.816 Spondylosis without myelopathy or radiculopathy, lumbar region

== ENCOUNTER 2022-11-26 09:38 | Outpatient (CLI) | payer MEDICARE ==
[2022-11-26 15:08] LABS: BILIRUBIN,URINE NEGATIVE (NEGATIVE); GLUCOSE, URINE (UA) NEGATIVE (NEGATIVE); KETONES,URINE (UA) NEGATIVE (NEGATIVE); LEUKOCYTE ESTERASE, URINE MODERATE (NEGATIVE); NITRITE,URINE POSITIVE (NEGATIVE); OCCULT BLOOD,URINE NEGATIVE (NEGATIVE); PROTEIN,URINE NEGATIVE (NEGATIVE); UROBILINOGEN,URINE 0.2 (NORMAL) E.U./dL (NORMAL)
[2022-11-26 15:37] LABS: CLARITY,URINE HAZY (CLEAR); RBC,URINE 0-5 /HPF (0-5); SQUAMOUS EPITHELIAL CELL,UR RARE Squamous (<= Few); WBC CLUMPS,URINE PRESENT; WBC,URINE >25 /HPF (0-5)
[2022-11-26 15:38] LABS: BACTERIA,URINE Many /HPF (None Seen)
== END 2022-11-26 09:39 | disposition home or self-care (01) ==
LOC: LAB.S 09:38
PROVIDERS: ATTEND Internal Medicine
DX: N39.0 Urinary tract infection, site not specified (principal)
CPT/HCPCS: 81001; 81003; 87086; 87181

== ENCOUNTER 2022-11-29 08:00 | Outpatient (CLI) | payer MEDICARE ==
[2022-11-29 19:40] LABS: BASOPHILS # (AUTO) 0.1 10^3/uL (0.0-0.1); BASOPHILS % (AUTO) 1.1 %; EOSINOPHILS # (AUTO) 0.2 10^3/uL (0.0-0.7); EOSINOPHILS % (AUTO) 2.8 %; HCT - HEMATOCRIT 40.4 % (37.0-47.0); HGB - HEMOGLOBIN 13.2 g/dL (12.0-16.0); LYMPHOCYTES # (AUTO) 1.5 10^3/uL (1.5-3.5); LYMPHOCYTES % (AUTO) 27.3 %; MEAN CORPUSCULAR HGB CONC 32.7 g/dL (32.0-36.0); MEAN PLATELET VOLUME 11.9 fL (7.9-10.8); MONOCYTES # (AUTO) 0.8 10^3/uL (0.0-1.0); MONOCYTES % (AUTO) 15.4 %; NEUTROPHILS # (AUTO) 2.9 10^3/uL (1.5-6.6); NEUTROPHILS % (AUTO) 53.2 %; PLT - PLATELET COUNT 210 10^3/uL (130-450); RED CELL DISTRIBUTION WIDTH 12.8 % (12.0-15.0); WHITE BLOOD COUNT 5.4 x10^3/uL (4.8-10.8)
[2022-11-29 20:04] LABS: ALBUMIN 3.5 g/dL (3.2-5.5); ALKALINE PHOSPHATASE 60 IU/L (42-121); ALT ALANINE AMINOTRANSFERASE 20 IU/L (10-60); AST ASPARTATE AMINOTRANSFERASE 23 IU/L (10-42); BILIRUBIN,TOTAL 0.5 mg/dL (0.2-1.0); BUN - BLOOD UREA NITROGEN 18 mg/dL (6-20); CALCIUM 9.4 mg/dL (8.5-10.3); CARBON DIOXIDE - CO2 30 mmol/L (21-32); CHLORIDE 101 mmol/L (101-111); CHOLESTEROL 175 mg/dL; CREATININE 0.9 mg/dL (0.4-1.0); GFR - MDRD 62 (>89); GLUCOSE 101 mg/dL (70-100); HDL CHOLESTEROL 58 mg/dL; LDL CHOLESTEROL,CALCULATED 82 mg/dL; LDL/HDL RATIO 1.4 (<4.4); POTASSIUM 4.7 mmol/L (3.5-5.0); SODIUM 139 mmol/L (135-145); TRIGLYCERIDES 173 mg/dL; VLDL CHOLESTEROL 35 mg/dL
[2022-11-29 20:05] LABS: ESTIMATED AVERAGE GLUCOSE 120 mg/dL (70-100); HEMOGLOBIN A1c% 5.8 % (4.27-6.07)
[2022-11-29 20:16] LABS: THYROID STIMULATING HORMONE 2.91 uIU/mL (0.34-5.60)
== END 2022-11-29 23:59 | disposition home or self-care (01) ==
LOC: LAB.S 08:00
PROVIDERS: ATTEND Internal Medicine
DX: I10 Essential (primary) hypertension (principal); E03.9 Hypothyroidism, unspecified; R73.01 Impaired fasting glucose; N12 Tubulo-interstitial nephritis, not specified as acute or chronic; Z13.220 Encounter for screening for lipoid disorders
CPT/HCPCS: 36415; 80053; 80061; 83036; 83721; 84443; 85025

== ENCOUNTER 2022-12-09 13:10 | Outpatient (CLI) | payer MEDICARE ==
[2022-12-09 19:56] LABS: BILIRUBIN,URINE NEGATIVE (NEGATIVE); GLUCOSE, URINE (UA) NEGATIVE (NEGATIVE); KETONES,URINE (UA) NEGATIVE (NEGATIVE); LEUKOCYTE ESTERASE, URINE NEGATIVE (NEGATIVE); NITRITE,URINE NEGATIVE (NEGATIVE); OCCULT BLOOD,URINE NEGATIVE (NEGATIVE); PROTEIN,URINE NEGATIVE (NEGATIVE); UROBILINOGEN,URINE 0.2 (NORMAL) E.U./dL (NORMAL)
[2022-12-09 20:04] LABS: AMORPHOUS SEDIMENT,UR Marked /LPF; BACTERIA,URINE Rare /HPF (None Seen); CLARITY,URINE SL. CLOUDY (CLEAR); RBC,URINE 0-5 /HPF (0-5); SQUAMOUS EPITHELIAL CELL,UR FEW Squamous (<= Few); WBC,URINE 0-3 /HPF (0-5)
[2022-12-09 20:05] LABS: CRYSTALS,URINE 0-2 Calcium Oxalate /LPF
== END 2022-12-09 13:11 | disposition home or self-care (01) ==
LOC: LAB.S 13:10
PROVIDERS: ATTEND Internal Medicine
DX: N39.0 Urinary tract infection, site not specified (principal)
CPT/HCPCS: 81001; 87086

== ENCOUNTER 2022-12-11 10:49 | Outpatient (CLI) | payer MEDICARE ==
[2022-12-11] MEDS ORDERED: iohexoL-300 100 ML VIAL ONE (10:55)
--- NOTE | 2022-12-11 14:30 | CT Report ---
PROCEDURE: ABDOMEN/PELVIS W INDICATIONS: RECURRENT UTI CONTRAST: 100ml Omnipaque 300 TECHNIQUE: After the administration of IV and oral contrast, 5 mm thick sections acquired from the diaphragms to the symphysis. 5 mm thick coronal and sagittal reformats were acquired. For radiation dose reducti on, the following was used: automated exposure control, adjustment of mA and/or kV according to fernanda ent size. COMPARISON: None. FINDINGS: Image quality: Good Lower chest: Unremarkable. Possible tiny hiatal hernia. Heart size is normal. Solid organs: Possible hepatic steatosis. Gallbladder is unremarkable. No pathologic dilation of the biliary tree or pancreatic duct. No splenomegaly. No adrenal nodules. No hydronephrosis. No intrarena l calculi within the limits of contrast evaluation. There are pelvic phleboliths. No measurable renal mass. There might be a punctate right distal ureter stone (), without upstream hydronephrosis. N o calcified bladder stones identified. Vessels and lymph nodes: No pathologic adenopathy by size criteria. The main portal vein is patent. N o abdominal aortic aneurysm. Retroaortic left renal vein Bowel and peritoneum: No evidence of small bowel obstruction. No pathologic ascites or drainable absc ess. Body wall: Unremarkable Pelvis: No calcified bladder stones. Reproductive organs appear unremarkable limited CT evaluation. Bones: Scattered degenerative changes without suspicious osseous finding. Progressed height loss of t he L2 vertebral body, now with over 50% fracture, new compared to 2022 imaging. There is trace retrop ulsion. IMPRESSION: Punctate right distal ureter stone (), without upstream hydronephrosis. Increased height loss, now with over 50% fracture, and trace retropulsion, of the L2 vertebral body c ompared to 2021. Correlate for any personal history of malignancy to determine if follow-up is needed . Other incidental findings above. Reviewed by: Mario Phillips MD on 12/11/2022 2:29 PM PDT Approved by: Mario Phillips MD on 12/11/2022 2:29 PM PDT Station ID: [id number]
[2022-12-11] MEDS ORDERED: DIATRIZOATE MEGLU/DIATRIZO SOD 30 ML BOTTLE PO ONE (14:32)
[2022-12-11] MEDS ORDERED: iohexoL-300 100 ML VIAL IVP ONE (14:33)
== END 2022-12-11 10:50 | disposition home or self-care (01) ==
LOC: DI 10:49
PROVIDERS: ATTEND Internal Medicine
DX: N20.1 Calculus of ureter (principal); M48.56XS Collapsed vertebra, not elsewhere classified, lumbar region, sequela of fracture
CPT/HCPCS: 74177; Q9963; Q9967

== ENCOUNTER 2023-02-21 11:59 | Outpatient (CLI) | payer MEDICARE ==
[2023-02-21 15:11] LABS: BILIRUBIN,URINE NEGATIVE (NEGATIVE); CLARITY,URINE HAZY (CLEAR); GLUCOSE, URINE (UA) NEGATIVE (NEGATIVE); KETONES,URINE (UA) NEGATIVE (NEGATIVE); LEUKOCYTE ESTERASE, URINE SMALL (NEGATIVE); NITRITE,URINE POSITIVE (NEGATIVE); OCCULT BLOOD,URINE NEGATIVE (NEGATIVE); PH,URINE 5.5 PH (5.0-7.5); PROTEIN,URINE NEGATIVE (NEGATIVE); UROBILINOGEN,URINE 0.2 (NORMAL) E.U./dL (NORMAL)
[2023-02-21 15:52] LABS: BACTERIA,URINE Moderate /HPF (None Seen); RBC,URINE 0-5 /HPF (0-5); SQUAMOUS EPITHELIAL CELL,UR FEW Squamous (<= Few); WBC,URINE >25 /HPF (0-5)
== END 2023-02-21 12:00 | disposition home or self-care (01) ==
LOC: LAB.S 11:59
PROVIDERS: ATTEND Internal Medicine
DX: N39.0 Urinary tract infection, site not specified (principal)
CPT/HCPCS: 81001; 81003; 87086; 87181

== ENCOUNTER 2023-02-27 09:41 | Outpatient (CLI) | payer MEDICARE ==
[2023-02-27 14:50] LABS: BILIRUBIN,URINE NEGATIVE (NEGATIVE); GLUCOSE, URINE (UA) NEGATIVE (NEGATIVE); KETONES,URINE (UA) NEGATIVE (NEGATIVE); LEUKOCYTE ESTERASE, URINE NEGATIVE (NEGATIVE); NITRITE,URINE NEGATIVE (NEGATIVE); OCCULT BLOOD,URINE NEGATIVE (NEGATIVE); PROTEIN,URINE NEGATIVE (NEGATIVE); UROBILINOGEN,URINE 0.2 (NORMAL) E.U./dL (NORMAL)
[2023-02-27 15:03] LABS: CALCIUM 9.5 mg/dL (8.5-10.3); CREATININE 0.8 mg/dL (0.4-1.0); POTASSIUM 3.9 mmol/L (3.5-5.0)
[2023-02-27 15:06] LABS: CLARITY,URINE CLEAR (CLEAR); RBC,URINE 0-5 /HPF (0-5); WBC,URINE 0-3 /HPF (0-5)
[2023-02-27 15:07] LABS: BACTERIA,URINE Rare /HPF (None Seen); SQUAMOUS EPITHELIAL CELL,UR MANY Squamous (<= Few)
[2023-02-27 15:10] LABS: THYROID STIMULATING HORMONE 2.22 uIU/mL (0.34-5.60)
[2023-02-27 20:54] LABS: ESTIMATED AVERAGE GLUCOSE 126 mg/dL (70-100)
== END 2023-02-27 09:42 | disposition home or self-care (01) ==
LOC: LAB.S 09:41
PROVIDERS: ATTEND Internal Medicine
DX: I10 Essential (primary) hypertension (principal); N39.0 Urinary tract infection, site not specified; E03.9 Hypothyroidism, unspecified; R73.01 Impaired fasting glucose
CPT/HCPCS: 36415; 80048; 81001; 83036; 84443; 87086

== ENCOUNTER 2023-07-24 14:23 | Outpatient (CLI) | payer MEDICARE ==
[2023-07-24 19:49] LABS: BASOPHILS % (AUTO) 0.6 %; EOSINOPHILS # (AUTO) 0.1 10^3/uL (0.0-0.7); EOSINOPHILS % (AUTO) 1.6 %; HCT - HEMATOCRIT 39.2 % (37.0-47.0); HGB - HEMOGLOBIN 12.7 g/dL (12.0-16.0); LYMPHOCYTES # (AUTO) 1.5 10^3/uL (1.5-3.5); LYMPHOCYTES % (AUTO) 23.9 %; MEAN CORPUSCULAR HEMOGLOBIN 32.6 pg (27.0-31.0); MEAN CORPUSCULAR HGB CONC 32.4 g/dL (32.0-36.0); MEAN CORPUSCULAR VOLUME 100.5 fL (81.0-99.0); MONOCYTES # (AUTO) 0.7 10^3/uL (0.0-1.0); MONOCYTES % (AUTO) 11.5 %; NEUTROPHILS % (AUTO) 62.1 %; PLT - PLATELET COUNT 197 10^3/uL (130-450); RED CELL DISTRIBUTION WIDTH 13.5 % (12.0-15.0); WHITE BLOOD COUNT 6.4 x10^3/uL (4.8-10.8)
[2023-07-24 20:00] LABS: BILIRUBIN,URINE NEGATIVE (NEGATIVE); GLUCOSE, URINE (UA) NEGATIVE (NEGATIVE); KETONES,URINE (UA) NEGATIVE (NEGATIVE); LEUKOCYTE ESTERASE, URINE NEGATIVE (NEGATIVE); NITRITE,URINE NEGATIVE (NEGATIVE); OCCULT BLOOD,URINE NEGATIVE (NEGATIVE); PROTEIN,URINE NEGATIVE (NEGATIVE); UROBILINOGEN,URINE 0.2 (NORMAL) E.U./dL (NORMAL)
[2023-07-24 20:04] LABS: CLARITY,URINE CLEAR (CLEAR)
[2023-07-24 20:08] LABS: ALBUMIN 3.9 g/dL (3.2-5.5); ALBUMIN/GLOBULIN RATIO 1.1 (1.0-2.2); BILIRUBIN,TOTAL 0.7 mg/dL (0.2-1.0); CALCIUM 9.9 mg/dL (8.5-10.3); CREATININE 0.9 mg/dL (0.6-1.3); POTASSIUM 4.1 mmol/L (3.5-4.5); TOTAL PROTEIN 7.3 g/dL (6.4-8.9)
== END 2023-07-24 14:24 | disposition home or self-care (01) ==
LOC: LAB.S 14:23
PROVIDERS: ATTEND Internal Medicine
DX: I10 Essential (primary) hypertension (principal); M54.50 Low back pain, unspecified; N39.0 Urinary tract infection, site not specified
CPT/HCPCS: 36415; 80053; 81001; 81003; 85025; 87086

== ENCOUNTER 2023-07-30 10:27 | Outpatient (CLI) | payer MEDICARE ==
--- NOTE | 2023-07-31 09:18 | Mammography Report ---
BILATERAL DIGITAL SCREENING MAMMOGRAM 3D/2D: 07/30/2023 CLINICAL: Routine screening. Comparison is made to exams dated: 05/29/2021 mammogram, 03/10/2020 mammogram, 03/10/2020 mammogram, 12/29 mammogram, and 07/09/2012 mammogram - [facility]. There are scattered areas of fibroglandular density in both breasts (category b / 25%-50% glandular t issue). No significant masses, calcifications, or other findings are seen in either breast. There has been no significant interval change. IMPRESSION: NEGATIVE There is no mammographic evidence of malignancy. A 1 year screening mammogram is recommended. Based on the Tyrer Cuzick model (a risk assessment model) the patients lifetime risk is 3.0% and her 10 year risk is 2.4%. According to the ACR, ACS, and NCCN guidelines, an annual breast MRI exam yue g with mammogram is recommended if the patients lifetime risk is 20% or greater. This exam was interpreted at Station ID: [id number]. NOTE: For mammograms, a report in lay terms will be sent to the patient. Approximately 15% of breast malignancies will not be visualized mammographically. In the management of a palpable breast mass, a negative mammogram must not discourage biopsy of a clinically suspicious lesion. Electronically Signed By: Mario smith/tiana:07/30/2023 16:14:52 letter sent: No_Letter ACR BI-RADS Category 1: Negative 3341F PARENCHYMAL PATTERN: (A) - The breast(s) demonstrate(s) scattered fibroglandular densities. BI-RADS CATEGORY: (1) - 1 Mammogram [id number] 1 year screening LATERALITY: (B)
== END 2023-07-30 10:28 | disposition home or self-care (01) ==
LOC: DI.S 10:27
PROVIDERS: ATTEND Internal Medicine
DX: Z12.31 Encounter for screening mammogram for malignant neoplasm of breast (principal); R92.323 Mammographic fibroglandular density, bilateral breasts

== ENCOUNTER 2023-07-30 14:47 | Outpatient (CLI) | payer MEDICARE | END 2023-07-30 14:48 | disposition critical access hospital (66) | LOC: EMS 14:47 | DX: R47.1 Dysarthria and anarthria (principal) | CPT/HCPCS: A0425; A0429 ==

== ENCOUNTER 2023-07-30 15:21 | Emergency (ER) | payer MEDICARE ==
[2023-07-30] MEDS ORDERED: SODIUM CHLORIDE 0.9% 1,000 ML IV STA (15:50)
--- NOTE | 2023-07-30 15:55 | ED Physician Documentation ---
PD HPI FOCAL NEURO - Stated complaint Stated Complaint: FACE NUMBNESS - Chief complaint Chief Complaint: Neuro - History obtained from History obtained from: Patient, Family, EMS - History of Present Illness Timing - onset: How many hours ago (1) Timing - duration: Minutes (5) Timing - details: Abrupt onset Severity of deficit: Moderate Weakness: No: Face, Arm, Hand, Leg, Foot, Right, Left Numbness: No: Face, Arm, Hand, Leg, Foot, Right, Left Associated symptoms: No: Headache, Nausea / vomiting, Seizure, Syncope, Fall, Head injury, Chest pain, Neck pain, Back pain, Fever Contributing factors: negative: Anticoagulated, Vascular dz, Atrial fibrillation, Prosthetic heart valve Baseline status: positive: A&OX3, ambulatory, indep Similar symptoms before: Other (states has had intermittent symptoms x 3 weeks, but lasted longer today) - Additional information Additional information: 73 year old female with aphasia today x 3-5 mins. Now resolved. No numbness, tingling, weakness. States symptoms have been occuring since a colonoscopy 3 weeks ago. Patient states that he does have diarrhea approximately 2-3 times a day. Nonbloody. No fevers. No chills. Review of Systems Constitutional: denies: Fever, Chills Respiratory: denies: Cough GI: denies: Abdominal Pain, Vomiting, Hematemesis, Bloody / black stool : denies: Dysuria, Frequency, Hesitancy Skin: denies: Rash Musculoskeletal: reports: Back pain (chronic L2 fracture). denies: Neck pain Neurologic: denies: Headache PD PAST MEDICAL HISTORY - Past Medical History Past Medical History: Yes Cardiovascular: None Respiratory: Pneumonia Neuro: None Endocrine/Autoimmune: None GI: GERD : Incontinence, Kidney stones HEENT: None Psych: Depression Musculoskeletal: Chronic back pain Derm: None - Past Surgical History Past Surgical History: Yes Ortho: Arthroscopic surgery - Present Medications Home Medications: Ambulatory Orders Medication Instructions Recorded Confirmed Levothyroxine [Synthroid] 100 mcg PO DAILY 02/18/14 10/13/16 Escitalopram Oxalate [Lexapro] 20 mg PO DAILY 05/16/15 10/13/16 Omeprazole 1 tab PO DAILY 10/13/16 10/13/16 Chlorthalidone 50 mg PO DAILY 07/30/23 Losartan [Cozaar] 100 mg PO DAILY 11/08/23 - Allergies Allergies/Adverse Reactions: Allergies Allergy/AdvReac Type Severity Reaction Status Date / Time No Known Drug Allergies Allergy Verified 07/30/23 15:25 - Social History Does the pt smoke?: No Smoking Status: Never smoker Does the pt drink ETOH?: Yes Does the pt have substance abuse?: No - Immunizations Immunizations are current?: No - POLST Patient has POLST: No PD ED PE NORMAL - Vitals Vital signs reviewed: Yes - General General: Alert and oriented X 3, No acute distress - HEENT HEENT: PERRL, Moist mucous membranes - Neck Neck: Supple, no meningeal sign - Cardiac Cardiac: RRR, Strong equal pulses - Respiratory Respiratory: No respiratory distress, Clear bilaterally - Abdomen Abdomen: Soft, Non tender, Non distended - Derm Derm: Warm and dry - Extremities Extremities: No edema, No calf tenderness / cord - Neuro Neuro: Alert and oriented X 3, 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, No motor deficit, No sensory deficit, Normal speech Eye Opening: Spontaneous Motor: Obeys Commands Verbal: Oriented GCS Score: 15 - Psych Psych: Normal mood, Normal affect NIHSS - Time Time: 15:50 - Level of Consciousness Level of consciousness: (0) Alert, Keenly responsive LOC Questions: (0) Answers both Q's correct LOC Commands: (0) Performs both correctly - Gaze Best Gaze: (0) Normal - Visual Visual: (0) No loss - Facial Palsy Facial Palsy: (0) Normal, symmetrical movement - Motor Arms (both separate) Motor Arm (right): (0) No drift Motor Arm (left): (0) No drift - Motor Legs (both separate) Motor Leg (right): (0) No drift Motor Leg (left): (0) No drift - Limb Ataxia Limb Ataxia: (0) Absent - Sensory Sensory: (0) Normal - Best Language Best Language: (0) No aphasia - Dysarthria Dysarthria: (0) Normal - Extinction and Inattention (formally neg Extinction and inattention: (0) No abnormality - Total Score/Results Total Score/Result: 0 Results - Vitals Vitals: Vital Signs - 24 hr 07/30/23 07/30/23 07/30/23 15:26 15:43 17:27 Temperature 37.4 C Heart Rate 68 67 64 Respiratory 18 17 19 Rate Blood Pressure 129/46 L 127/51 L 141/46 H O2 Saturation 95 100 97 07/30/23 07/30/23 07/30/23 19:19 19:36 21:01 Temperature Heart Rate 69 60 Respiratory 17 17 18 Rate Blood Pressure 141/49 H 127/54 L O2 Saturation 98 99 07/30/23 07/30/23 22:22 23:13 Temperature Heart Rate 67 64 Respiratory 17 17 Rate Blood Pressure 128/68 O2 Saturation 99 95 Oxygen O2 Source Room air - EKG (time done) 2004 EKG releavant findings:: EKG personally interpreted by author of this note. Relevant findings are: Rate: Rate (enter#) (67) Rhythm: NSR [place]: Normal Intervals: Normal IN QRS: Normal Ischemia: Normal ST segments - Labs Labs: Laboratory Tests 07/30/23 07/30/23 07/30/23 16:04 16:04 16:04 WBC 5.0 RBC 3.64 L Hgb 12.4 Hct 36.8 L MCV 101.1 H MCH 34.1 H MCHC 33.7 RDW 13.0 Plt Count 197 MPV 11.8 H Neut # (Auto) 3.1 Lymph # (Auto) 1.1 L [place] # (Auto) 0.7 Eos # (Auto) 0.1 Baso # (Auto) 0.0 Absolute Nucleated RBC 0.00 Nucleated RBC % 0.0 PT 13.0 H INR 1.2 APTT 26.6 Sodium 139 Potassium 3.5 Chloride 100 L Carbon Dioxide 36 H Anion Gap 3.0 L BUN 20 Creatinine 1.1 Estimated GFR (MDRD) 49 L Glucose 106 H Calcium 9.6 Phosphorus 2.5 Magnesium 1.5 L Total Bilirubin 0.6 AST 20 ALT 17 Alkaline Phosphatase 58 Total Protein 6.7 Albumin 3.7 Globulin 3.0 Albumin/Globulin Ratio 1.2 Lipase 40 Urine Color Urine Clarity Urine pH Ur Specific [place] Urine Protein Urine Glucose (UA) Urine Ketones Urine Occult Blood Urine Nitrite Urine Bilirubin Urine Urobilinogen Ur Leukocyte Esterase Ur Microscopic Review Urine Culture Comments 07/30/23 17:10 WBC RBC Hgb Hct MCV MCH MCHC RDW Plt Count MPV Neut # (Auto) Lymph # (Auto) [place] # (Auto) Eos # (Auto) Baso # (Auto) Absolute Nucleated RBC Nucleated RBC % PT INR APTT Sodium Potassium Chloride Carbon Dioxide Anion Gap BUN Creatinine Estimated GFR (MDRD) Glucose Calcium Phosphorus Magnesium Total Bilirubin AST ALT Alkaline Phosphatase Total Protein Albumin Globulin Albumin/Globulin Ratio Lipase Urine Color YELLOW Urine Clarity CLEAR Urine pH 6.5 Ur Specific [place] 1.015 Urine Protein NEGATIVE Urine Glucose (UA) NEGATIVE Urine Ketones NEGATIVE Urine Occult Blood NEGATIVE Urine Nitrite NEGATIVE Urine Bilirubin NEGATIVE Urine Urobilinogen 0.2 (NORMAL) Ur Leukocyte Esterase NEGATIVE Ur Microscopic Review NOT INDICATED Urine Culture Comments NOT INDICATED - Rads (name of study) Head CT Relevant Findings:: Final report received, See rad report CT angiogram head and neck Relevant Findings:: Final report received, See rad report MRI brain Relevant Findings:: Final report received, See rad report PD Medical Decision Making - ED course Complexity details: reviewed results, re-evaluated patient, considered differential, d/w patient, d/w desktop support consultant ED course: 73-year-old female with symptoms of TIA today. MRI brain shows a subacute left parietal stroke. Her CT angiogram shows a 90% stenosis of her carotid artery bilaterally. Patient was given aspirin. We will hold Plavix at this time. Patient did have difficulty writing her name when she was signing a consent form for treatment. Not a tPA candidate. Discussed the case with Dr. Pryor, teleneurology, recommends aspirin. Recommends holding Plavix until vascular has decided if they will perform an intervention while she is on Plavix. Discussed the case with Dr. Bustamante, neurology at [place], at [phone], agrees with aspirin, recommends transfer to the hospitalist service. Discussed the case with Dr. Michelle, Hospitalist who accepts At [place] in [place] Patient signed out to the oncoming ED provider awaiting transfer Departure - Departure Disposition: 02 Transfer Acute Care Hosp Clinical Impression: Carotid stenosis, bilateral Cerebrovascular accident (CVA) Qualifiers: CVA mechanism: unspecified Qualified Code(s): I63.9 - Cerebral infarction, unspecified Condition: Stable Forms: PCP List
[2023-07-30 16:11] LABS: BASOPHILS % (AUTO) 0.8 %; EOSINOPHILS # (AUTO) 0.1 10^3/uL (0.0-0.7); HCT - HEMATOCRIT 36.8 % (37.0-47.0); HGB - HEMOGLOBIN 12.4 g/dL (12.0-16.0); LYMPHOCYTES # (AUTO) 1.1 10^3/uL (1.5-3.5); LYMPHOCYTES % (AUTO) 21.8 %; MEAN CORPUSCULAR HEMOGLOBIN 34.1 pg (27.0-31.0); MEAN CORPUSCULAR HGB CONC 33.7 g/dL (32.0-36.0); MEAN CORPUSCULAR VOLUME 101.1 fL (81.0-99.0); MEAN PLATELET VOLUME 11.8 fL (7.9-10.8); MONOCYTES # (AUTO) 0.7 10^3/uL (0.0-1.0); MONOCYTES % (AUTO) 14.2 %; NEUTROPHILS # (AUTO) 3.1 10^3/uL (1.5-6.6); PLT - PLATELET COUNT 197 10^3/uL (130-450); RED BLOOD COUNT 3.64 10^6/uL (4.20-5.40)
[2023-07-30 16:22] LABS: PARTIAL THROMBOPLASTIN TIME 26.6 secs (24.9-33.3)
[2023-07-30 16:27] LABS: ALBUMIN 3.7 g/dL (3.2-5.5); ALBUMIN/GLOBULIN RATIO 1.2 (1.0-2.2); BILIRUBIN,TOTAL 0.6 mg/dL (0.2-1.0); CALCIUM 9.6 mg/dL (8.5-10.3); CREATININE 1.1 mg/dL (0.6-1.3); INR 1.2 (0.8-1.2); PHOSPHORUS 2.5 mg/dL (2.5-5.0); POTASSIUM 3.5 mmol/L (3.5-4.5); TOTAL PROTEIN 6.7 g/dL (6.4-8.9)
[2023-07-30 16:32] LABS: MAGNESIUM 1.5 mg/dL (1.7-2.3)
[2023-07-30] MEDS ORDERED: iohexoL-300 100 ML VIAL IVP ONE (17:02)
--- NOTE | 2023-07-30 17:10 | MRI Report ---
PROCEDURE: BRAIN WO INDICATIONS: aphasia earlier today, now resolved. TECHNIQUE: Noncontrast axial T1 spin echo, axial T2 fast spin echo, sagittal and axial FLAIR, coronal T2 fast sp in echo, axial gradient echo, axial diffusion and ADC through the brain. COMPARISON: CT head, 01/30/2023 and 07/30/2023. FINDINGS: Image quality: Excellent. CSF Spaces: Basal cisterns are patent. No extra-axial fluid collections. Ventricles are normal in size and shape. Brain: There are foci of restricted diffusion at the cortical medullary interface in the left pariet al lobe with associated T2/FLAIR hyperintensity, compatible with subacute infarct. No intracranial ma sses or hemorrhage is mild cerebral volume loss. There are foci of T2 hyperintensity in periventricul ar white matter and griselda, likely secondary to chronic small vessel ischemic change. A few lesions dem onstrate central low signal intensity and peripheral hyperintensity in the left hemisphere. Brainstem appears normal. Diffusion-weighted images demonstrate no acute ischemic insult. No chronic ischemi c insults. Normal intravascular flow voids are present. Skull and face: Calvarium has normal marrow signal. Orbits appear normal. Sinuses: Sinuses and mastoids are clear. IMPRESSION: 1. Foci of restricted diffusion in the left parietal lobe with associated T2/FLAIR hyperintensity, jennings ggesting subacute infarct. A differential diagnosis is old infarct with T2 shine through. 2. Cerebral volume loss and periventricular white matter chronic small vessel ischemic changes. 3. A few 1 matter lesions in the left periventricular white matter demonstrate central low signal and peripheral hyperintensity. These lesions are most likely related to small vessel ischemic but a demy elinating process is a differential diagnosis. Comparison to prior examinations, if available, would be helpful. If clinically indicated, contrast-enhanced images would be helpful. Reviewed by: Elmer Cage MD on 07/30/2023 5:09 PM PST Approved by: Elmer Cage MD on 07/30/2023 5:09 PM PST Station ID: [id number]
[2023-07-30 17:34] LABS: BILIRUBIN,URINE NEGATIVE (NEGATIVE); GLUCOSE, URINE (UA) NEGATIVE (NEGATIVE); KETONES,URINE (UA) NEGATIVE (NEGATIVE); LEUKOCYTE ESTERASE, URINE NEGATIVE (NEGATIVE); NITRITE,URINE NEGATIVE (NEGATIVE); OCCULT BLOOD,URINE NEGATIVE (NEGATIVE); PH,URINE 6.5 PH (5.0-7.5); PROTEIN,URINE NEGATIVE (NEGATIVE); UROBILINOGEN,URINE 0.2 (NORMAL) E.U./dL (NORMAL)
--- NOTE | 2023-07-30 17:37 | CT Report ---
PROCEDURE: HEAD WO INDICATIONS: aphasia earlier today, now resolved. TECHNIQUE: Noncontrast 4.5 mm thick angled axial sections acquired from the foramen magnum to the vertex. For r adiation dose reduction, the following was used: automated exposure control, adjustment of mA and/or kV according to patient size. COMPARISON: CT head, 01/30/2023. FINDINGS: Image quality: Excellent. CSF spaces: Basal cisterns are patent. No extra-axial fluid collections. Ventricles are normal in size and shape. Brain: No midline shift. No intracranial masses or hemorrhage. Moderate cerebral volume loss and pe riventricular white matter chronic small by surgical changes. Herrera-white matter interface is normal. Skull and face: Calvarium and visualized facial bones are intact, without suspicious lesions. Sinuses: Visualized sinuses and mastoids are clear. IMPRESSION: 1. No acute intracranial pathology. 2. Moderate cerebral volume loss and periventricular white matter chronic small vessel ischemic purvis es. Reviewed by: Elmer Cage MD on 07/30/2023 5:36 PM PST Approved by: Elmer Cage MD on 07/30/2023 5:36 PM PST Station ID: [id number]
[2023-07-30 17:40] LABS: CLARITY,URINE CLEAR (CLEAR)
--- NOTE | 2023-07-30 18:02 | CT Report ---
PROCEDURE: CT Angio Head/Neck INDICATIONS: aphasia earlier today, now resolved. TECHNIQUE: After the administration of intravenous contrast, 1 mm thick sections acquired from the aortic arch t hrough the [place] of [place]. Post-contrast 4.5 mm thick sections then re-acquired from the foramen m agnum to the vertex. 3-dimensional xvfgkuh-aexflncwh-sacrvoggch (MIP) and/or volume rendering reform ats were acquired of the central intracranial vasculature and neck separately. For radiation dose re duction, the following was used: automated exposure control, adjustment of mA and/or kV according to patient size. CONTRAST: 80ml omni 300 COMPARISON: Correlation is made with CT and MRI studies performed earlier in the day. FINDINGS: Image quality: This study is limited by body habitus, streak artifact seen through the level of the s houlders. Limited by bolus timing, with venous contamination. HEAD CT: CSF Spaces: Basal cisterns are patent. No extra-axial fluid collections. Ventricles are normal in size and shape. Brain: No midline shift. No intracranial bleeds or masses. No abnormal intracranial enhancement. Herrera-white interface appears normal. Skull and face: Calvarium and visualized facial bones appear intact, without suspicious lesions. Sinuses: Visualized sinuses and mastoids are clear. HEAD CT ANGIOGRAPHY: Anterior circulation: Intracranial internal carotid arteries are normal in size and flow. Note is m bianca of a diminutive right A1 segment, with a correspondingly robust left A1 segment. This is consider ed to be a developmental variant of no clinical consequence. The flow within the paired anterior cer ebral arteries is otherwise normal and symmetric. The flow within the middle cerebral arteries is no rmal and symmetric. The anterior communicating artery is seen. No aneurysms are seen. Posterior circulation: Visualized portions of the vertebral arteries demonstrate normal caliber, and join to form a normal appearing basilar artery. Flow within the posterior cerebral arteries is norm al and symmetric. No aneurysms are seen. NECK CT ANGIOGRAPHY: Carotid system: The great vessels demonstrate a conventional anatomy as they arise from the aortic a rch. The origins of the common carotid arteries appear patent. The common carotid arteries demonstr ate normal caliber and courses. The left carotid bifurcation region demonstrates focal plaque with irregularity, with 90% narrowing. The right carotid bifurcation region demonstrates dense atherosclerotic calcification with also appro ximately 90% narrowing. Posterior circulation: The origins of the vertebral arteries both appear widely patent. The more jennings perior extracranial portions of both vertebral arteries also demonstrate normal courses and calibers. They join to form a normal appearing basilar artery. Soft tissues: Visualized neck soft tissues demonstrate no suspicious abnormalities. Bones: No suspicious bony lesions. Visualized cervical spine appears normally aligned. Moderate ce rvical spine degenerative change is seen. IMPRESSION: Focal prominent narrowing can be seen involving the carotid bifurcation regions, with approximately 9 0% narrowing at each side. The left carotid bifurcation region demonstrates irregular soft plaque and may be the culprit lesion of the left-sided infarct seen on the accompanying MRI. No significant intracranial arterial abnormalities are seen. The estimate of stenosis included in the report of the imaging study was calculated using the NASCET method Reviewed by: León Garzon MD on 07/30/2023 5:01 PM [facility] Approved by: León Garzon MD on 07/30/2023 5:01 PM [facility] Station ID: [id number]
[2023-07-30] MEDS ORDERED: ASPIRIN 325 MG TABLET PO STA (18:13)
[2023-07-31 04:40] VITALS: BP 134/57; O2SAT 96
--- NOTE | 2023-07-31 05:29 | ED Physician Documentation ---
ED Addendum - Addendum Addendum: 07/31/23 05:29 Patient endorsed to me by Dr. Grullon at 11 PM shift change pending bed availability at [facility] for transfer. She obtained a bed overnight and paper work was completed for ALS transfer. Impression 1 CVA 2 bilateral carotid stenosis Condition stable Disposition transfer
== END 2023-07-31 05:50 | disposition short-term general hospital (02) ==
LOC: EDUNIT# → ED 15:21
DX: I65.23 Occlusion and stenosis of bilateral carotid arteries (principal); I63.9 Cerebral infarction, unspecified; Z79.899 Other long term (current) drug therapy
CPT/HCPCS: 36415; 70450; 70496; 70498; 70551; 80053; 81003; 83690; 83735; 84100; 85025; 85610; 85730; 93005; 99284; 99285; A9270; Q9967; 81001; 87086

== ENCOUNTER 2023-07-31 05:53 | Outpatient (CLI) | payer MEDICARE | END 2023-07-31 23:59 | disposition short-term general hospital (02) | LOC: EMS 05:53 | PROVIDERS: ATTEND Emergency Medicine | DX: I63.9 Cerebral infarction, unspecified (principal) | CPT/HCPCS: A0425; A0426 ==

== ENCOUNTER 2023-08-22 13:45 | Outpatient (CLI) | payer MEDICARE ==
[2023-08-22 20:10] LABS: BASOPHILS % (AUTO) 0.7 %; EOSINOPHILS # (AUTO) 0.1 10^3/uL (0.0-0.7); EOSINOPHILS % (AUTO) 2.4 %; HGB - HEMOGLOBIN 12.3 g/dL (12.0-16.0); LYMPHOCYTES % (AUTO) 17.8 %; MEAN CORPUSCULAR HEMOGLOBIN 33.5 pg (27.0-31.0); MEAN CORPUSCULAR HGB CONC 32.4 g/dL (32.0-36.0); MEAN CORPUSCULAR VOLUME 103.5 fL (81.0-99.0); MEAN PLATELET VOLUME 12.9 fL (7.9-10.8); MONOCYTES # (AUTO) 0.7 10^3/uL (0.0-1.0); MONOCYTES % (AUTO) 12.4 %; NEUTROPHILS # (AUTO) 3.6 10^3/uL (1.5-6.6); NEUTROPHILS % (AUTO) 66.5 %; PLT - PLATELET COUNT 185 10^3/uL (130-450); RED BLOOD COUNT 3.67 10^6/uL (4.20-5.40); RED CELL DISTRIBUTION WIDTH 13.6 % (12.0-15.0); WHITE BLOOD COUNT 5.3 x10^3/uL (4.8-10.8)
[2023-08-22 20:27] LABS: ALBUMIN/GLOBULIN RATIO 1.3 (1.0-2.2); CALCIUM 10.1 mg/dL (8.5-10.3); CREATININE 0.8 mg/dL (0.6-1.3); POTASSIUM 4.7 mmol/L (3.5-4.5); TOTAL PROTEIN 7.2 g/dL (6.4-8.9)
[2023-08-22 20:39] LABS: THYROID STIMULATING HORMONE 0.54 uIU/mL (0.34-5.60)
[2023-08-23 18:50] LABS: ESTIMATED AVERAGE GLUCOSE 114 mg/dL (70-100); HEMOGLOBIN A1c% 5.6 % (4.27-6.07)
== END 2023-08-22 13:46 | disposition home or self-care (01) ==
LOC: LAB.S 13:45
PROVIDERS: ATTEND Physician Assistant Medical
DX: I63.9 Cerebral infarction, unspecified (principal)
CPT/HCPCS: 36415; 80053; 83036; 84443; 85025

== ENCOUNTER 2023-08-22 16:05 | Outpatient (CLI) | payer MEDICARE ==
--- NOTE | 2023-08-24 17:19 | Ultrasound Report ---
PROCEDURE: Duplex Lwr Ext Arterial Bilat INDICATIONS: CVA TECHNIQUE: Color and pulse Doppler interrogation was performed of both lower extremity arterial systems, with im age documentation. COMPARISON: None FINDINGS: Study is somewhat limited by patient body habitus. Right lower extremity: Common femoral artery: 170 cm/sec, with triphasic flow. Deep femoral artery: 112 cm/sec, with monophasic flow. Proximal superficial femoral artery: 182 cm/sec, with triphasic flow. Mid superficial femoral artery: 167 cm/sec, with triphasic flow. Distal superficial femoral artery: 141 cm/sec, with triphasic flow. Popliteal artery: 132 cm/sec, with triphasic flow. Posterior tibial artery: 159 cm/sec, with triphasic flow. Anterior tibial artery/dorsalis pedis: 85 cm/sec, with biphasic flow. Herrera-scale imaging description: No focal hemodynamically significant stenosis visualized. Left lower extremity: Common femoral artery: 193 cm/sec, with triphasic flow. Deep femoral artery: 128 cm/sec, with triphasic flow. Proximal superficial femoral artery: 174 cm/sec, with triphasic flow. Mid superficial femoral artery: 147 cm/sec, with biphasic flow. Distal superficial femoral artery: 166 cm/sec, with biphasic flow. Popliteal artery: 119 cm/sec, with phasic flow. Posterior tibial artery: 173 cm/sec, with biphasic flow. Anterior tibial artery/dorsalis pedis: 33 cm/sec, with biphasic flow. Herrera-scale imaging description: No focal hemodynamically significant stenosis. IMPRESSION: 1. No focal hemodynamically significant stenosis is visualized. However, there is limited visualizati on of the right posterior tibial artery and monophasic waveforms are present. A stenosis may be prese nt within this vessel with resultant monophasic waveforms. Reviewed by: Madalyn Aquino MD on 08/24/2023 5:17 PM PST Approved by: Madalyn Aquino MD on 08/24/2023 5:17 PM PST Station ID: [id number]
--- NOTE | 2023-08-24 17:19 | Ultrasound Report ---
PROCEDURE: Ankle Brachial Index INDICATIONS: CVA TECHNIQUE: Ankle-brachial indices were obtained bilaterally and recorded. COMPARISONS: None. FINDINGS: Right ankle brachial index (TUAN): 0.94 Left ankle brachial index (TUAN): 0.93 Healing potential: Ankle pressures >55 mm Hg in non-diabetics and >80 mm Hg in diabetics are likely to achieve primary h ealing of ischemic foot ulcers. Toe pressures >30 mm Hg are likely to achieve primary healing of ischemic foot ulcers, toe or transme tatarsal amputations. IMPRESSION: No findings to suggest significant peripheral vascular disease of the lower extremities. Reviewed by: Madalyn Aquino MD on 08/24/2023 5:18 PM PST Approved by: Madalyn Aquino MD on 08/24/2023 5:18 PM PST Station ID: [id number]
== END 2023-08-22 16:06 | disposition home or self-care (01) ==
LOC: DI 16:05
PROVIDERS: ATTEND Physician Assistant Medical
DX: I63.9 Cerebral infarction, unspecified (principal)
CPT/HCPCS: 36415; 80053; 83036; 84443; 85025; 93922; 93925

== ENCOUNTER 2023-08-29 08:00 | Outpatient (CLI) | payer MEDICARE | END 2023-08-29 23:59 | disposition home or self-care (01) | LOC: LAB 08:00 | PROVIDERS: ATTEND Physician Assistant Medical | DX: R39.15 Urgency of urination (principal) | CPT/HCPCS: 87086 ==

== ENCOUNTER 2023-09-08 15:34 | Outpatient (CLI) | payer MEDICARE ==
[2023-09-08 15:55] LABS: HCT - HEMATOCRIT 38.9 % (37.0-47.0); HGB - HEMOGLOBIN 12.9 g/dL (12.0-16.0); MEAN CORPUSCULAR HEMOGLOBIN 32.8 pg (27.0-31.0); MEAN CORPUSCULAR HGB CONC 33.2 g/dL (32.0-36.0); MEAN PLATELET VOLUME 12.1 fL (7.9-10.8); RED BLOOD COUNT 3.93 10^6/uL (4.20-5.40); WHITE BLOOD COUNT 5.5 x10^3/uL (4.8-10.8)
[2023-09-08 16:06] LABS: PARTIAL THROMBOPLASTIN TIME 26.7 secs (24.9-33.3)
[2023-09-08 16:11] LABS: INR 1.1 (0.8-1.2); PT - PROTHROMBIN TIME 12.3 secs (9.9-12.6)
[2023-09-08 16:16] LABS: CALCIUM 10.2 mg/dL (8.5-10.3); CREATININE 0.7 mg/dL (0.6-1.3); POTASSIUM 3.8 mmol/L (3.5-4.5)
== END 2023-09-08 15:35 | disposition home or self-care (01) ==
LOC: LAB 15:34
PROVIDERS: ATTEND Physician Assistant Medical
DX: Z01.812 Encounter for preprocedural laboratory examination (principal); I65.23 Occlusion and stenosis of bilateral carotid arteries; I63.9 Cerebral infarction, unspecified
CPT/HCPCS: 36415; 80048; 85027; 85610; 85730

== ENCOUNTER 2023-10-21 07:00 | Outpatient (CLI) | payer MEDICARE ==
[2023-10-22 14:01] LABS: BACTERIAL VAGINOSIS DNA NEGATIVE (NEGATIVE); CANDIDA GLABRATA DNA NEGATIVE (NEGATIVE); CANDIDA GROUP DNA NEGATIVE (NEGATIVE); CANDIDA KRUSEI DNA NEGATIVE (NEGATIVE); TRICHOMONAS VAGINALIS DNA NEGATIVE (NEGATIVE)
== END 2023-10-21 23:59 | disposition home or self-care (01) ==
LOC: LAB.S 07:00
PROVIDERS: ATTEND Physician Assistant Medical
DX: N76.0 Acute vaginitis (principal)
CPT/HCPCS: 81514

== ENCOUNTER 2023-12-19 07:17 | Outpatient (CLI) | payer MEDICARE ==
[2023-12-19 16:09] LABS: BILIRUBIN,URINE NEGATIVE (NEGATIVE); GLUCOSE, URINE (UA) NEGATIVE (NEGATIVE); KETONES,URINE (UA) NEGATIVE (NEGATIVE); LEUKOCYTE ESTERASE, URINE NEGATIVE (NEGATIVE); NITRITE,URINE NEGATIVE (NEGATIVE); OCCULT BLOOD,URINE NEGATIVE (NEGATIVE); PH,URINE 6.5 PH (5.0-7.5); PROTEIN,URINE NEGATIVE (NEGATIVE); UROBILINOGEN,URINE 0.2 (NORMAL) E.U./dL (NORMAL)
[2023-12-19 16:12] LABS: CLARITY,URINE CLEAR (CLEAR)
[2023-12-19 17:10] LABS: BACTERIA,URINE None Seen /HPF (None Seen); RBC,URINE None Seen /HPF (0-5); SQUAMOUS EPITHELIAL CELL,UR RARE Squamous (<= Few); WBC,URINE 0-3 /HPF (0-5)
== END 2023-12-19 07:18 | disposition home or self-care (01) ==
LOC: LAB.S 07:17
PROVIDERS: ATTEND Physician Assistant Medical
DX: R39.15 Urgency of urination (principal)
CPT/HCPCS: 81001; 87086

== ENCOUNTER 2024-01-02 14:32 | Outpatient (CLI) | payer MEDICARE ==
--- NOTE | 2024-01-02 17:05 | XRAY Report ---
PROCEDURE: Knee 3V RT INDICATIONS: ACUTE RIGHT KNEE PAIN TECHNIQUE: 3 views of the knee(s) were acquired. COMPARISON: 02/08/2019 FINDINGS: Bones: No fractures or dislocations. No suspicious bony lesions. Tricompartmental joint space humberto rowing with associated osteophytosis. Soft tissues: No knee joint effusion. No suspicious soft tissue calcifications or masses. IMPRESSION: Mild to moderate tricompartmental osteoarthritis. Kellgren-Iain scale of osteoarthritis: 2. This has progressed since 2019. Reviewed by: Federico Chaidez MD on 01/02/2024 5:04 PM PDT Approved by: Federico Chaidez MD on 01/02/2024 5:04 PM PDT Station ID: [id number]
== END 2024-01-02 14:33 | disposition home or self-care (01) ==
LOC: DI 14:32
PROVIDERS: ATTEND Physician Assistant Medical
DX: M17.11 Unilateral primary osteoarthritis, right knee (principal)

== ENCOUNTER 2024-02-03 14:33 | Outpatient (CLI) | payer MEDICARE ==
[2024-02-03 14:49] LABS: BASOPHILS % (AUTO) 0.5 %; EOSINOPHILS # (AUTO) 0.1 10^3/uL (0.0-0.7); EOSINOPHILS % (AUTO) 1.3 %; HGB - HEMOGLOBIN 12.9 g/dL (12.0-16.0); LYMPHOCYTES # (AUTO) 0.9 10^3/uL (1.5-3.5); LYMPHOCYTES % (AUTO) 13.9 %; MEAN CORPUSCULAR HEMOGLOBIN 32.3 pg (27.0-31.0); MEAN CORPUSCULAR HGB CONC 33.1 g/dL (32.0-36.0); MEAN CORPUSCULAR VOLUME 97.7 fL (81.0-99.0); MEAN PLATELET VOLUME 12.3 fL (7.9-10.8); MONOCYTES # (AUTO) 0.6 10^3/uL (0.0-1.0); MONOCYTES % (AUTO) 10.5 %; NEUTROPHILS # (AUTO) 4.5 10^3/uL (1.5-6.6); NEUTROPHILS % (AUTO) 73.6 %; PLT - PLATELET COUNT 196 10^3/uL (130-450); RED BLOOD COUNT 3.99 10^6/uL (4.20-5.40); RED CELL DISTRIBUTION WIDTH 14.1 % (12.0-15.0); WHITE BLOOD COUNT 6.1 x10^3/uL (4.8-10.8)
[2024-02-03 15:27] LABS: ALBUMIN/GLOBULIN RATIO 1.3 (1.0-2.2); ALKALINE PHOSPHATASE 61 IU/L (42-121); ALT ALANINE AMINOTRANSFERASE 16 IU/L (10-60); AST ASPARTATE AMINOTRANSFERASE 18 IU/L (10-42); BUN - BLOOD UREA NITROGEN 17 mg/dL (6-20); CALCIUM 9.8 mg/dL (8.5-10.3); CARBON DIOXIDE - CO2 30 mmol/L (21-32); CHLORIDE 103 mmol/L (101-111); CHOL/HDL RATIO 1.7 (<4.4); CHOLESTEROL 118 mg/dL; CREATININE 0.8 mg/dL (0.6-1.3); GFR - MDRD 70 (>89); GLUCOSE 117 mg/dL (74-104); HDL CHOLESTEROL 68 mg/dL; LDL CHOLESTEROL,CALCULATED 38 mg/dL; LDL/HDL RATIO 0.6 (<4.4); POTASSIUM 4.4 mmol/L (3.5-4.5); SODIUM 136 mmol/L (135-145); TOTAL PROTEIN 7.1 g/dL (6.4-8.9); TRIGLYCERIDES 60 mg/dL (48-352); VLDL CHOLESTEROL 12 mg/dL
[2024-02-03 15:28] LABS: THYROID STIMULATING HORMONE 0.53 uIU/mL (0.34-5.60)
[2024-02-03 20:58] LABS: ESTIMATED AVERAGE GLUCOSE 126 mg/dL (70-100)
== END 2024-02-03 14:34 | disposition home or self-care (01) ==
LOC: LAB 14:33
PROVIDERS: ATTEND Physician Assistant Medical
DX: I10 Essential (primary) hypertension (principal); E78.5 Hyperlipidemia, unspecified; E03.9 Hypothyroidism, unspecified
CPT/HCPCS: 36415; 80053; 80061; 83036; 83721; 84443; 85025

== ENCOUNTER 2024-02-18 13:45 | Outpatient (CLI) | payer MEDICARE ==
--- NOTE | 2024-02-18 16:26 | DEXA Report ---
PROCEDURE: Dexa Spine and/or Hip INDICATIONS: MENOPAUSAL TECHNIQUE: Dual energy x-ray absorptiometry (DXA) was performed on a BrightRoll System. Regions measur ed are the AP Spine, femoral neck, and if needed forearm. COMPARISON: DEXA 03/10/2020, Lumbar spine radiographs 10/23/2022 FINDINGS: Lumbar Spine: Bone Mineral Density: 1.115 g/cm/cm,T score: -0.5. There has been no statistically significant purvis e in bone mineral density since the prior study. Chronic L2 compression fracture is noted. Left Femoral Neck: Bone Mineral Density: 0.970 g/cm/cm, T score: -0.5. Left Hip: Bone Mineral Density: 0.985 g/cm/cm,T score: -0.2. Since the most recent prior study, there has been a statistically significant increase in bone mineral density by 4.2 percent. (T score greater or equal to -1.0: NORMAL) (T score from -1.1 to -2.4: OSTEOPENIA) (T score less than or equal to -2.5 to: OSTEOPOROSIS) Impression: By WHO criteria, this patient has normal bone density. No statistical interval change in bone mineral density of the lumbar spine. Interval statistical incr ease in bone mineral density of the hip. Patients with diagnosis of osteoporosis or osteopenia should have regular bone mineral density assess ment. For those eligible for Medicare, routine testing is allowed once every 2 years. Testing frequ ency can be increased for patients who have rapidly progressing disease or for those who are receivin g medical therapy to restore bone mass. Reviewed by: Les Escobar MD on 02/18/2024 4:25 PM PDT Approved by: Les Escobar MD on 02/18/2024 4:25 PM PDT Station ID: [id number]
== END 2024-02-18 13:46 | disposition home or self-care (01) ==
LOC: DI 13:45
PROVIDERS: ATTEND Physician Assistant Medical
DX: Z78.0 Asymptomatic menopausal state (principal)

== ENCOUNTER 2024-04-05 11:50 | Outpatient (CLI) | payer MEDICARE ==
--- NOTE | 2024-04-05 22:06 | XRAY Report ---
PROCEDURE: Lumbar Spine 2-3V INDICATIONS: LOW BACK PAIN TECHNIQUE: 3 views of the lumbar spine were acquired. COMPARISON: X-ray lumbar spine 10/23/2022 FINDINGS: Surgical change: None. Bones: 5 igp-bhe-mavxgfv vertebrae are present. There is normal bony alignment. Unchanged compressio n deformity at L2 with trace retrolisthesis of L2 on L3. There is trace retrolisthesis of L3 on L4 tr rosenda anterolisthesis of L4 on L5. Multilevel degenerative disc space narrowing as well as foraminal na rrowing are present most prominent at L5-S1, overall unchanged. Scattered anterior osteophytes are pr esent most probably bridging at L1-L2. Soft tissues: Overlying bowel gas pattern is normal. No suspicious soft tissue calcifications. IMPRESSION: Stable appearance of L2 compression deformity as well as multilevel degenerative change. Reviewed by: Loreto Dyer MD on 04/05/2024 10:04 PM PDT Approved by: Loreto Dyer MD on 04/05/2024 10:04 PM PDT Station ID: [id number]
== END 2024-04-05 11:51 | disposition home or self-care (01) ==
LOC: DI 11:50
PROVIDERS: ATTEND Nurse Practitioner Gerontology
DX: M47.816 Spondylosis without myelopathy or radiculopathy, lumbar region (principal); M47.817 Spondylosis without myelopathy or radiculopathy, lumbosacral region; M48.56XA Collapsed vertebra, not elsewhere classified, lumbar region, initial encounter for fracture

== ENCOUNTER 2024-04-18 14:12 | Emergency (ER) | payer MEDICARE ==
--- NOTE | 2024-04-18 14:39 | ED Physician Documentation ---
PD HPI LOWER EXT INJURY - Stated complaint Stated Complaint: LT HIP PX,CAUSES LEG TO COLLAPSE - Chief complaint Chief Complaint: Back Pain - History obtained from History obtained from: Patient - History of Present Illness PD HPI LOW EXT INJURY LOCATION: Left, Hip, Buttock, Other (sacroiliac area leeft side.) Type of injury: No: Fall, Twist Where injury occurred: Home Timing - onset: How many weeks ago (1-2) Timing - duration: Weeks (1-2) Timing - details: Gradual onset, Still present (more consisent and painful the past day. Not able to sleep due to pain and worse walking attempts. Using walker.), Waxing and waning Improved by: Rest Worsened by: Moving (particularly weight bearing causes pain to gluteal and SI area.). No: Palpating Associated symptoms: No: Weakness, Numbness, Swelling Contributing factors: No: Anticoagulated Similar symptoms before: Diagnosis (arthritis in low back with pains intermittently. Prior L2 compression fracture years ago with chronic mild pains on activity.) Review of Systems Constitutional: denies: Fever, Chills GI: denies: Abdominal Pain, Vomiting, Diarrhea : denies: Incontinent Skin: denies: Rash, Lesions Neurologic: reports: Focal weakness (she states her left hip/leg gives out on her when walking due to pain at SI area.). denies: Numbness PD PAST MEDICAL HISTORY - Past Medical History Past Medical History: Yes Cardiovascular: Hypertension, Peripheral Vascular Disease Respiratory: Pneumonia Neuro: CVA Endocrine/Autoimmune: HyPOthyroidism GI: GERD [employer]: None : Incontinence, Kidney stones HEENT: None Psych: Depression Musculoskeletal: Chronic back pain Derm: None - Past Surgical History Past Surgical History: Yes Ortho: Arthroscopic surgery - Present Medications Home Medications: Ambulatory Orders Medication Instructions Recorded Confirmed Escitalopram Oxalate [Lexapro] 20 mg PO DAILY 05/16/15 07/31/23 Chlorthalidone 50 mg PO DAILY 07/30/23 07/31/23 Losartan [Cozaar] 100 mg PO DAILY 07/30/23 07/31/23 Levothyroxine Sodium [Synthroid] 150 mcg PO DAILY 07/31/23 07/31/23 Omeprazole Magnesium 20 mg PO DAILY 07/31/23 07/31/23 Lidocaine 4 % TP DAILY PRN #10 patch 04/18/24 Oxycodone HCl/Acetaminophen 1 each PO Q6H PRN #18 tablet 04/18/24 [Percocet 5-325 mg Tablet] dexAMETHasone [Decadron] 4 mg PO DAILY #5 tablet 04/18/24 methocarbamoL [Robaxin] 500 mg PO Q6H PRN #20 tablet 04/18/24 - Allergies Allergies/Adverse Reactions: Allergies Allergy/AdvReac Type Severity Reaction Status Date / Time No Known Drug Allergies Allergy Verified 04/18/24 14:29 - Social History Does the pt smoke?: No Smoking Status: Never smoker Does the pt drink ETOH?: No Does the pt have substance abuse?: No - Immunizations Immunizations are current?: Yes - POLST Patient has POLST: No PD ED PE NORMAL - Vitals Vital signs reviewed: Yes - General General: Alert and oriented X 3, Well developed/nourished - Abdomen Abdomen: Soft, Non tender - Back Back: No CVA TTP, Other (tender mainly at left SI area. But has pain with walking and feeling of hip giving out, so consider issues with joint. consideration of psoas hematoma as well, for the symptoms. Can get CT lumbar and pelvis. ) - Derm Derm: Normal color, Warm and dry, No rash Results - Vitals Vitals: Oxygen O2 Source Room air - Rads (name of study) lumbar/pelvic CT Relevant Findings:: Prelim report reviewed (L2 compression fracture with some retropulsed fragments mildly. (This is know prior finding for pt). Arhritic changes in pelvis No fractures. ), EMP independent interpretation of test PD Medical Decision Making - ED course Complexity details: reviewed results, re-evaluated patient (lessened/improved pain with meds in ER. ), considered differential (left SI/pelvic pain with some radition to thigh and feeling of hip giving out with walking, due to pain. No focal weakn/numb in lower leg. Can get imaging to assess for occult compression/spine process, SI abnormality/pelvic fx or psoas hematoma. ), d/w patient Departure - Departure Disposition: 01 Home, Self Care Clinical Impression: Sacroiliac inflammation, Acute low back pain Condition: Stable Record reviewed to determine appropriate education?: Yes Instructions: ED Sacroiliitis Follow-Up: Joleen Pantoja NP [Primary Care Provider] - Prescriptions: dexAMETHasone [Decadron] 4 mg PO DAILY #5 tablet Lidocaine 4 % TP DAILY PRN #10 patch PRN Reason: Pain 1-4 Oxycodone HCl/Acetaminophen [Percocet 5-325 mg Tablet] 1 each PO Q6H PRN #18 tablet PRN Reason: pain methocarbamoL [Robaxin] 500 mg PO Q6H PRN #20 tablet PRN Reason: Spasms Comments: Your CT scan showed the previously known L2 compression fracture. There are arthritic changes noted throughout the lower spine and also on the pelvic CT arthritic changes noted through the sacroiliac joint and the symphysis. Essentially places that you are hurting do have arthritis to them. That said the arthritis would not develop quickly so there is still some tipping point to acute injury to it that is causing the pain now. It could be muscular in nature as well. I would suggest a combination of some anti-inflammatories and muscle relaxant along with some lidocaine patches and Tylenol regularly and then adding Percocet if needed for worse pain. Start with Decadron steroid anti-inflammatory daily for the next 5 days. Since you do take a blood thinner and aspirin this would be preferred over regular NSAIDs. To that methocarbamol muscle relaxant for spasms and stiffness 2-3 times daily. Then add Tylenol/acetaminophen 500 to 650 mg 4 times a day for pain. Add oxycodone/acetaminophen if needed for worse pain. Recheck if not improving well over the next several days or so. Return if worse or new symptoms develop. I sent prescriptions to the [facility] pharmacy in [place]. I am prescribing a short course of narcotic pain medication for you. These are potentially dangerous and addictive medications that should be used carefully. These medications may constipate you. Take an aukt-kwn-clcibvf stool softener such as docusate twice daily with plenty of water while taking these medications. If you go 24 hours without a bowel movement, take kkqd-whg-egjmprg MiraLAX, per package instructions. Do not drink or drive while taking these medications. If you received narcotic or sedating medications while in the emergency department do not drive for 24 hours. Store this medication in a safe, secure place and out of reach of children. It is a violation of federal law to give or sell this medication to another person or to use in a manner other than prescribed. The ED will not refill narcotic prescriptions, including prescriptions lost or stolen. You can dispose of unwanted medications at the [facility] office or at several pharmacies such as [facility]. Discharge Date/Time: 04/18/24 18:50
[2024-04-18 14:43] VITALS: O2SAT 100
[2024-04-18] MEDS: dexAMETHasone 4 MG TABLET PO STA (15:28)
[2024-04-18] MEDS: HYDROcod/ACETAM 5/325 MG TABLET PO STA (15:28)
--- NOTE | 2024-04-18 17:49 | CT Report ---
PROCEDURE: Lumbar Spine WO INDICATIONS: left low back/SI area pain to gluteal/ischial area TECHNIQUE: Helical axial CT of the lumbar spine was obtained without contrast and reformatted in mul tiple planes. Radiation dose reduction was achieved utilizing automated exposure control or adjustmen t of mA and/or kV according to patient size. COMPARISON: None. FINDINGS: Bones: L2 wedge-shaped compression fracture with small retropulsed fracture fragment results in 80% a nterior height loss and mild central stenosis at the L1-2. Remainder the vertebral body heights and a lignment is well maintained. Otherwise, posterior osteophyte at the T12-L1 also results in mild central stenosis. Hypertrophic art hropathy results in moderate right foraminal stenosis at L4-5 and L5-S1 Soft tissues: No retroperitoneal masses or hematomas. Visualized aorta is normal in caliber. IMPRESSION: L2 compression fracture with retropulsed fracture fragment results in mild central stenosis at L1-2 Reviewed by: Quinten Uriarte MD on 04/18/2024 4:47 PM [facility] Approved by: Quinten Uriarte MD on 04/18/2024 4:47 PM [id number] Station ID: [id number]
--- NOTE | 2024-04-18 17:54 | CT Report ---
PROCEDURE: Pelvis WO INDICATIONS: left hip to ischial area pain/gluteal. TECHNIQUE: Noncontrast 3 mm axial sections acquired through the bony pelvis, with coronal and sagittal reformatt ing. For radiation dose reduction, the following was used: automated exposure control, adjustment of mA and/or kV according to patient size. COMPARISON: None. FINDINGS: Degenerative arthritic changes noted lower lumbar spine. Pelvic ring intact. Degenerative arthritic c hanges at the pubis symphysis and both sacroiliac joints at. Both proximal femurs are also intact. Bi lateral joint space narrowing and small marginal osteophytes. No fracture. Overlying soft tissues are unremarkable. IMPRESSION: No evidence of fracture or soft tissue hematoma. Moderate bilateral hip, and is symphysis, sacroiliac and lower lumbar spine degenerative arthritic ch anges Reviewed by: Quinten Uriarte MD on 04/18/2024 4:53 PM [facility] Approved by: Quinten Uriarte MD on 04/18/2024 4:53 PM [facility] Station ID: [id number]
[2024-04-18] MEDS: oxyCODONE/ACET 5/325 Prepack 4 PO STA (18:34)
[2024-04-18] MEDS: HYDROmorphone 1 MG/ML CARPUJECT IM STA (18:35)
[2024-04-18] MEDS: KETOROLAC 30 MG/ML VIAL IM STA (18:36)
[2024-04-18 19:06] VITALS: BP 130/60
== END 2024-04-18 18:50 | disposition home or self-care (01) ==
LOC: ED 14:12
DX: M46.1 Sacroiliitis, not elsewhere classified (principal); M54.50 Low back pain, unspecified; I10 Essential (primary) hypertension; E03.9 Hypothyroidism, unspecified; Z79.899 Other long term (current) drug therapy; Z86.73 Personal history of transient ischemic attack (TIA), and cerebral infarction without residual deficits
CPT/HCPCS: 72131; 72192; 96372; 99284; A9270; J1170; J8540

== ENCOUNTER 2024-05-04 15:35 | Outpatient (CLI) | payer MEDICARE ==
[2024-05-04 15:53] LABS: BASOPHILS % (AUTO) 0.4 %; EOSINOPHILS # (AUTO) 0.4 10^3/uL (0.0-0.7); HCT - HEMATOCRIT 40.7 % (37.0-47.0); HGB - HEMOGLOBIN 13.1 g/dL (12.0-16.0); LYMPHOCYTES # (AUTO) 0.9 10^3/uL (1.5-3.5); LYMPHOCYTES % (AUTO) 12.9 %; MEAN CORPUSCULAR HEMOGLOBIN 32.6 pg (27.0-31.0); MEAN CORPUSCULAR HGB CONC 32.2 g/dL (32.0-36.0); MEAN CORPUSCULAR VOLUME 101.2 fL (81.0-99.0); MEAN PLATELET VOLUME 11.8 fL (7.9-10.8); MONOCYTES # (AUTO) 0.6 10^3/uL (0.0-1.0); MONOCYTES % (AUTO) 9.2 %; NEUTROPHILS % (AUTO) 72.2 %; PLT - PLATELET COUNT 195 10^3/uL (130-450); RED BLOOD COUNT 4.02 10^6/uL (4.20-5.40); RED CELL DISTRIBUTION WIDTH 13.9 % (12.0-15.0)
[2024-05-04 16:13] LABS: ALBUMIN 3.8 g/dL (3.2-5.5); ALBUMIN/GLOBULIN RATIO 1.3 (1.0-2.2); BILIRUBIN,TOTAL 0.8 mg/dL (0.2-1.0); CALCIUM 9.8 mg/dL (8.5-10.3); CREATININE 0.8 mg/dL (0.6-1.3); POTASSIUM 4.6 mmol/L (3.5-4.5); TOTAL PROTEIN 6.7 g/dL (6.4-8.9)
== END 2024-05-04 15:36 | disposition home or self-care (01) ==
LOC: LAB 15:35
PROVIDERS: ATTEND Nurse Practitioner Gerontology
DX: I10 Essential (primary) hypertension (principal)
CPT/HCPCS: 36415; 80053; 85025

== ENCOUNTER 2024-06-17 10:47 | Outpatient (CLI) | payer MEDICARE ==
[2024-06-17 11:05] LABS: ABSOLUTE RETICS # AUTO 0.066 10^6/uL (0.020-0.110); BASOPHILS % (AUTO) 0.4 %; EOSINOPHILS # (AUTO) 0.1 10^3/uL (0.0-0.7); HCT - HEMATOCRIT 39.8 % (37.0-47.0); LYMPHOCYTES # (AUTO) 0.7 10^3/uL (1.5-3.5); LYMPHOCYTES % (AUTO) 13.3 %; MEAN CORPUSCULAR HEMOGLOBIN 32.3 pg (27.0-31.0); MEAN CORPUSCULAR HGB CONC 32.7 g/dL (32.0-36.0); MEAN PLATELET VOLUME 11.6 fL (7.9-10.8); MONOCYTES # (AUTO) 0.4 10^3/uL (0.0-1.0); MONOCYTES % (AUTO) 8.8 %; NEUTROPHILS # (AUTO) 3.8 10^3/uL (1.5-6.6); NEUTROPHILS % (AUTO) 75.3 %; PLT - PLATELET COUNT 231 10^3/uL (130-450); RED BLOOD COUNT 4.02 10^6/uL (4.20-5.40); RED CELL DISTRIBUTION WIDTH 13.2 % (12.0-15.0); RETICULOCYTE COUNT % (AUTO) 1.64 % (0.5-2.3)
[2024-06-17 11:25] LABS: CALCIUM 9.9 mg/dL (8.5-10.3); CREATININE 0.6 mg/dL (0.6-1.3); POTASSIUM 4.3 mmol/L (3.5-4.5)
[2024-06-17 11:47] LABS: FERRITIN 51.5 ng/mL (11.0-306.8)
== END 2024-06-17 10:48 | disposition home or self-care (01) ==
LOC: LAB 10:47
PROVIDERS: ATTEND Nurse Practitioner Gerontology
DX: Z01.812 Encounter for preprocedural laboratory examination (principal); D64.9 Anemia, unspecified
CPT/HCPCS: 36415; 80048; 82607; 82728; 82746; 83540; 84466; 85025; 85045; 85730